=== PATIENT | male | born 1960 | race Caucasian/White ===

== ENCOUNTER 2020-05-01 12:24 | Inpatient (IN) | payer OTHER ==
[~2020-05-01] VITALS: Ht 177.8 cm; Wt 185.0 kg
[2020-05-01 13:09] LABS: Basophils # (auto) 0.1 10 ^3/uL (0-0.2); Basophils % (auto) 1.1 % (0.0-2.0); Eosinophils # (auto) 0.1 10 ^3/uL (0-0.8); Eosinophils % (auto) 1.2 % (0.0-7.0); Hematocrit 43.8 % (41.0-53.0); Hemoglobin 14.4 g/dL (13.5-17.5); Lymphocytes % (auto) 16.8 % (10.0-50.0); Mean Corpuscular Hemoglobin 29.6 pg (28.0-32.0); Mean Corpuscular Hgb Conc. 32.8 g/dL (32.0-36.0); Mean Corpuscular Volume 90.2 fL (80.0-100.0); Monocytes # (auto) 0.7 10 ^3/uL (0-1.3); Monocytes % (auto) 5.9 % (0.0-12.0); Nucleated Red Blood Cells % 0.2 %; Platelet Count (auto) 259 10^3/uL (140-450); Red Blood Cells 4.85 10^6/uL (4.5-5.90)
[2020-05-01 13:26] LABS: Albumin 3.6 g/dL (3.4-5.0); Anion Gap 10 (5-15); Blood Urea Nitrogen 17 mg/dL (7-18); Calcium 8.8 mg/dL (8.5-10.1); Carbon Dioxide 24 mmol/L (21-32); Chloride 104 mmol/L (98-107); Glucose 153 mg/dL (74-106); Partial Thromboplastin Time 26.1 sec (23.0-31.2); Potassium 3.5 mmol/L (3.5-5.1); Sodium 138 mmol/L (136-145)
[2020-05-01 13:32] LABS: Alanine Aminotransferase 36 U/L (16-61); Alkaline Phosphatase 91 U/L (45-117); Aspartate Aminotransferase 19 U/L (15-37); BUN/Creatinine Ratio 14.8; Bilirubin, Total 0.4 mg/dL (0.2-1.0); GFR African American 84 mL/min; GFR Non-African American 69 mL/min; Total Protein 7.4 g/dL (6.4-8.2)
[2020-05-01] MEDS ORDERED: levoFLOXacin 750MG 150 ML IV ONE (16:00)
[2020-05-01] MEDS ORDERED: SODIUM CHLORIDE 0.9% 1,000 ML IV SCH (16:52)
[2020-05-01] MEDS ORDERED: MORPHINE SULF INJ 2 MG/ML SYRINGE 1ML IV PRN ×2 (17:00)
[2020-05-01] MEDS ORDERED: NITROGLYCERIN 0.4 MG SL TAB SL PRN (17:00)
[2020-05-01] MEDS ORDERED: LABETALOL HCL 5 MG/ML ML 20ML VIAL IV PRN (17:00)
[2020-05-01] MEDS ORDERED: PROMETHAZINE HCL 25 MG/ML 1ML IV PRN (17:00)
[2020-05-01] MEDS ORDERED: ACETAMINOPHEN 500 MG TAB PO PRN ×2 (17:00)
[2020-05-01] MEDS ORDERED: traMADol HCL 50 MG TAB PO PRN (17:00)
[2020-05-01] MEDS ORDERED: TEMAZEPAM 15 MG CAP PO PRN (17:00)
[2020-05-01] MEDS: ZINC SULFATE 220mg CAP or TAB PO SCH (17:03)
[2020-05-01] MEDS: ASCORBIC ACID 1,000 MG TAB PO SCH (18:17)
[2020-05-01] MEDS: CHOLECALCIFEROL (VITD3) 2,000 UNIT CAP PO SCH (18:17)
[2020-05-01] MEDS: ENOXAPARIN SOD 40 MG/0.4 ML SYRINGE SC SCH (18:18)
[2020-05-01] MEDS: DexAMETHasone SOD PHOS 10MG/1ML VIAL INJ IV SCH (18:18)
--- NOTE | 2020-05-01 19:06 | NUR ---
Respiratory note: ASSESSED PT AT THIS TIME, NO RESP DISTRESS NOTED, PULSE OX 93% ON 2LNC, HR 76, RR 18
[2020-05-01 20:05] LABS: CRP High Sensitivity 0.309 mg/dL (< 0.3)
--- NOTE | 2020-05-01 20:42 | NUR ---
Telemetry admit from ZEV PETERSON admitted to Telemetry unit. Patient oriented to Radha Mcnair, primary RN, unit, room, bed, and unit policies regarding patient care and visiting hours. Patient now on continuous telemetry monitoring, tele box #3 and telemetry reading on arrival to unit is SR. Patient placed on bedside oxygen, weighed by bedscale and encouraged to call if they need something. All questions and concerns addressed, patient verbalized understanding.
[2020-05-01 21:54] VITALS: BP 132/61
[2020-05-01] MEDS: CLINDAMYCIN 600MG IV 50 ML IV SCH (22:24)
[2020-05-01] MEDS: ATORVASTATIN 20 MG TAB PO SCH (22:24)
[2020-05-01] MEDS: METOPROLOL TARTRATE 25 MG TAB PO SCH (22:24)
[2020-05-01] MEDS: BUDESONIDE (INHALATION) 180 MCG IH IN SCH (22:30)
[2020-05-01] MEDS: ALBUTEROL SULF HFA 90MCG INH 200DOSE IN SCH (22:31)
--- NOTE | 2020-05-01 22:31 | NUR ---
Respiratory note: MDI HELD AT THIS TIME DUE TO COVID RESULTS PENDING.
[2020-05-01 23:58] VITALS: BP 132/61
[2020-05-02 00:01] VITALS: BP 132/61
[2020-05-02] MEDS ORDERED: TAMS0.4C36 PO ×2 (04:05)
[2020-05-02] MEDS ORDERED: LOSA-39 PO (04:05)
[2020-05-02] MEDS ORDERED: AMLO10TA13 PO ×2 (04:05)
[2020-05-02] MEDS ORDERED: ATEN50TA PO (04:05)
[2020-05-02] MEDS ORDERED: METF-370 PO ×2 (04:05)
[2020-05-02] MEDS ORDERED: MAGN400T40 PO ×2 (04:05)
[2020-05-02 05:22] VITALS: BP 141/73
[2020-05-02] MEDS: CLINDAMYCIN 600MG IV 50 ML IV SCH ×3 (05:41→21:33)
[2020-05-02] MEDS: ALBUTEROL SULF HFA 90MCG INH 200DOSE IN SCH ×3 (06:00→22:00)
--- NOTE | 2020-05-02 08:46 | NUR ---
Opening Shift Note Assumed care of patient, awake and alert. No S/S of distress/SOB or pain. Instructed on POC and to call for assist PRN, will continue to monitor for changes Q1hr and PRN.
[2020-05-02 09:00] VITALS: BP 140/80
[2020-05-02] MEDS: ZINC SULFATE 220mg CAP or TAB PO SCH (09:32)
[2020-05-02] MEDS: levoFLOXacin 500MG 100 ML IV SCH (09:32)
[2020-05-02] MEDS: DexAMETHasone SOD PHOS 10MG/1ML VIAL INJ IV SCH (09:32)
[2020-05-02] MEDS: ASPirin 81 mg TAB PO SCH (09:32)
[2020-05-02] MEDS: METOPROLOL TARTRATE 25 MG TAB PO SCH ×2 (09:33→21:34)
[2020-05-02] MEDS: ENOXAPARIN SOD 40 MG/0.4 ML SYRINGE SC SCH ×2 (09:33→21:34)
[2020-05-02] MEDS: CHOLECALCIFEROL (VITD3) 2,000 UNIT CAP PO SCH (09:33)
[2020-05-02] MEDS: ASCORBIC ACID 1,000 MG TAB PO SCH (09:33)
[2020-05-02] MEDS: BUDESONIDE (INHALATION) 180 MCG IH IN SCH ×2 (10:00→22:00)
[2020-05-02 11:25] LABS: Urine Bacteria NONE SEEN /hpf (None Seen); Urine Blood Negative /uL (Negative); Urine Mucus FEW (None Seen); Urine Specific Gravity 1.021 (1.001-1.035); Urine WBC <1 /hpf (0 - 3)
[2020-05-02 11:40] LABS: Alcohol, Urine < 3.0 mg/dL (0-10); Amphetamine Screen, Urine NEGATIVE (NEGATIVE); Barbiturate Scree,Urine NEGATIVE (NEGATIVE); Benzodiazephine Screen, Urine NEGATIVE (NEGATIVE); Cannabinoid Screen, Urine NEGATIVE (NEGATIVE); Cocaine Screen, Urine NEGATIVE (NEGATIVE); Opiate Scree,Urine NEGATIVE (NEGATIVE); Phencyclidine Screen, Urine NEGATIVE (NEGATIVE)
[2020-05-02 13:00] VITALS: BP 146/69
[2020-05-02 17:00] VITALS: BP 151/75
[2020-05-02 19:55] LABS: Basophils # (auto) 0 10 ^3/uL (0-0.2); Basophils % (auto) 0.2 % (0.0-2.0); Eosinophils # (auto) 0 10 ^3/uL (0-0.8); Eosinophils % (auto) 0.3 % (0.0-7.0); Hematocrit 41.2 % (41.0-53.0); Hemoglobin 13.6 g/dL (13.5-17.5); Lymphocytes % (auto) 15.3 % (10.0-50.0); Mean Corpuscular Hemoglobin 29.7 pg (28.0-32.0); Mean Corpuscular Hgb Conc. 32.9 g/dL (32.0-36.0); Mean Corpuscular Volume 90.1 fL (80.0-100.0); Monocytes # (auto) 0.9 10 ^3/uL (0-1.3); Monocytes % (auto) 7.2 % (0.0-12.0); Neutrophils # (auto) 10.1 10 ^3/uL (1.6-8.6); Nucleated Red Blood Cells % 0.1 %; Platelet Count (auto) 258 10^3/uL (140-450); Red Blood Cells 4.58 10^6/uL (4.5-5.90); Red Cell Distribution Width 14.3 % (11.8-14.3); White Blood Cell 13.1 10^3/uL (4.4-10.8)
[2020-05-02 19:59] LABS: Albumin 3.1 g/dL (3.4-5.0); BUN/Creatinine Ratio 17.4; Calcium 8.3 mg/dL (8.5-10.1); Potassium 3.9 mmol/L (3.5-5.1)
[2020-05-02 20:02] LABS: Bilirubin, Total 0.5 mg/dL (0.2-1.0); Total Protein 6.9 g/dL (6.4-8.2)
[2020-05-02] MEDS: ATORVASTATIN 20 MG TAB PO SCH (21:33)
[2020-05-02 22:00] VITALS: BP 147/64
--- NOTE | 2020-05-02 22:16 | NUR ---
Respiratory note: MDI AND DPI HELD DUE TO PENDING R/O COVID RESULTS.
[2020-05-03 05:00] VITALS: BP 135/74
[2020-05-03] MEDS: CLINDAMYCIN 600MG IV 50 ML IV SCH ×2 (05:20→14:23)
[2020-05-03] MEDS: ALBUTEROL SULF HFA 90MCG INH 200DOSE IN SCH (06:00)
--- NOTE | 2020-05-03 06:05 | NUR ---
Respiratory note: MDI/DPI THERAPY HELD PATIENT REMAINS COVID R/O WITH RESULTS PENDING. PATIENT IN NO ACUTE RESPIRATORY DISTRESS AT THIS TIME. SPO2 96% ON 1LPM N/C. ALL OTHER VITALS WNL.
--- NOTE | 2020-05-03 07:53 | NUR ---
OPENING SHIFT NOTE: PATIENT RESTING IN BED, AWAKE A/OX4. ADDRESSED PATIENT CONCERNS, AND UPDATED ON PLAN OF CARE. FALL PRECAUTIONS IN PLACE, CALL LIGHT MOVED WITHIN REACH. WILL CONTINUE TO MONITOR.
[2020-05-03 08:00] VITALS: BP 137/63
[2020-05-03 08:00] LABS: Basophils # (auto) 0.1 10 ^3/uL (0-0.2); Basophils % (auto) 0.6 % (0.0-2.0); Eosinophils # (auto) 0.2 10 ^3/uL (0-0.8); Eosinophils % (auto) 1.7 % (0.0-7.0); Hematocrit 42.5 % (41.0-53.0); Hemoglobin 14.5 g/dL (13.5-17.5); Lymphocytes % (auto) 27.9 % (10.0-50.0); Mean Corpuscular Hemoglobin 30.6 pg (28.0-32.0); Monocytes # (auto) 0.9 10 ^3/uL (0-1.3); Monocytes % (auto) 7.8 % (0.0-12.0); Neutrophils # (auto) 6.8 10 ^3/uL (1.6-8.6); Nucleated Red Blood Cells % 0.2 %; Platelet Count (auto) 244 10^3/uL (140-450); Red Blood Cells 4.73 10^6/uL (4.5-5.90); Red Cell Distribution Width 14.5 % (11.8-14.3); White Blood Cell 10.9 10^3/uL (4.4-10.8)
[2020-05-03 08:06] LABS: BUN/Creatinine Ratio 20.7; Calcium 8.5 mg/dL (8.5-10.1); Potassium 3.9 mmol/L (3.5-5.1)
[2020-05-03] MEDS: DexAMETHasone SOD PHOS 10MG/1ML VIAL INJ IV SCH (09:48)
[2020-05-03] MEDS: levoFLOXacin 500MG 100 ML IV SCH (09:48)
[2020-05-03] MEDS: ASCORBIC ACID 1,000 MG TAB PO SCH (09:48)
[2020-05-03] MEDS: ZINC SULFATE 220mg CAP or TAB PO SCH (09:48)
[2020-05-03] MEDS: ASPirin 81 mg TAB PO SCH (09:48)
[2020-05-03] MEDS: ENOXAPARIN SOD 40 MG/0.4 ML SYRINGE SC SCH (09:49)
[2020-05-03] MEDS: METOPROLOL TARTRATE 25 MG TAB PO SCH (09:49)
[2020-05-03] MEDS: CHOLECALCIFEROL (VITD3) 2,000 UNIT CAP PO SCH (09:49)
[2020-05-03] MEDS: BUDESONIDE (INHALATION) 180 MCG IH IN SCH (10:00)
--- NOTE | 2020-05-03 11:20 | NUR ---
PATIENT COVID NEGATIVE, AND SENT TO ROOM 216A REPORT GIVEN TO LISSETTE AYALA. PATIENT LEFT WITH ALL BELONGINGS.
--- NOTE | 2020-05-03 11:20 | NUR ---
Report Assumed patient care from Covid unit, received report from LUCY Acosta.
--- NOTE | 2020-05-03 11:45 | NUR ---
Patient Arrived Patient arrived to unit. No signs of distress at this time, respirations even and unlabored. Safety precautions in place, will continue to monitor.
[2020-05-03 12:59] VITALS: BP 129/69
[2020-05-03 16:48] VITALS: BP 138/65
--- NOTE | 2020-05-03 16:56 | NUR ---
at Station Dr. Norman at station discussing plan of care.
--- NOTE | 2020-05-03 17:00 | NUR ---
Called Received call from Dr. Powers, per MD patient clear for discharge. Dr. Norman notified and aware.
[2020-05-03] MEDS ORDERED: ASPI-543 PO ×2 (17:29)
[2020-05-03] MEDS ORDERED: ATOR20TA50 PO (17:29)
[2020-05-03] MEDS ORDERED: FURO20TA3 PO ×3 (17:29→17:55)
[2020-05-03] MEDS ORDERED: ATOR10TA52 PO ×2 (17:39)
[2020-05-03] MEDS ORDERED: POTA10TA51 PO ×2 (17:39)
[2020-05-03] MEDS ORDERED: MET25T PO ×2 (17:54)
[2020-05-03] MEDS ORDERED: LEVO500T21 PO ×2 (17:56)
[2020-05-03 19:07] VITALS: BP 138/65
--- NOTE | 2020-05-03 19:10 | NUR ---
OPENING SHIFT NOTE: Assumed care of patient. Patient awake, alert and oriented x 4. No s/s of SOB or distress, patient denies pain. Bed in lowest locked position with two side rails raised and call hill within reach. Instructed on POC and encouraged to call for assistance, all questions and concerns addressed, patient verbalizes understanding. Will continue to monitor.
--- NOTE | 2020-05-03 19:55 | NUR ---
DISCHARGE: Discharge instructions given as ordered. Encourage to follow up with PMD as instructed. All questions and concerns addressed. Patient verbalized understanding. Medication reconciliation form completed and copy given to patient. IV removed with catheter intact, pressure dressing applied. Telemetry unit returned to ICU. Patient taken to vehicle via wheelchair with all personal belongings, accompanied by staff and family member with no incident, No distress noted at time of departure.
== END 2020-05-03 19:55 | disposition home or self-care (01) | DRG 178 ==
LOC: EDBD 12:24 → ER 12:24 → TELE-E-ADS 12:25 → TELE-CENTR 05-03 11:22
PROVIDERS: ADMIT Internal Medicine; ATTEND Hospitalist
DX: J15.6 Pneumonia due to other Gram-negative bacteria (principal); Z68.43 Body mass index [BMI] 50.0-59.9, adult; E11.9 Type 2 diabetes mellitus without complications; E66.01 Morbid (severe) obesity due to excess calories; E78.5 Hyperlipidemia, unspecified; I10 Essential (primary) hypertension; Z83.3 Family history of diabetes mellitus; D72.829 Elevated white blood cell count, unspecified; R79.89 Other specified abnormal findings of blood chemistry; Z20.828 Contact with and (suspected) exposure to other viral communicable diseases
CPT/HCPCS: 36415; 71045; 80048; 80053; 80307; 81001; 82550; 82728; 83880; 84443; 84484; 85025; 85379; 85610; 85652; 85730; 86141; 87040; 87426; 93005; 93306; 93886; 94762; 96361; 96365; 96375; G0378; J1100; J1956; J3490

== ENCOUNTER → 2020-05-24 | Emergency (ER) | payer OTHER ==
[~2020-05-24] VITALS: Ht 177.8 cm; Wt 177.8 kg
[~2020-05-24] MED LIST: AMLO10TA13 PO; ASPI-543 PO; ATEN50TA PO; ATOR10TA52 PO; ATOR20TA50 PO; FURO20TA3 PO; LEVO500T21 PO; LOSA-39 PO; MAGN400T40 PO; MET25T PO; METF-370 PO; POTA10TA51 PO; TAMS0.4C36 PO
[2020-05-24 23:15] LABS: Basophils # (auto) 0 10 ^3/uL (0-0.2); Basophils % (auto) 0.3 % (0.0-2.0); Eosinophils # (auto) 0.2 10 ^3/uL (0-0.8); Eosinophils % (auto) 1.8 % (0.0-7.0); Hematocrit 43.8 % (41.0-53.0); Hemoglobin 14.5 g/dL (13.5-17.5); Lymphocytes # (auto) 1.4 10 ^3/uL (0.4-5.4); Lymphocytes % (auto) 14.1 % (10.0-50.0); Mean Corpuscular Hemoglobin 30.2 pg (28.0-32.0); Mean Corpuscular Hgb Conc. 33.2 g/dL (32.0-36.0); Mean Corpuscular Volume 91.1 fL (80.0-100.0); Monocytes # (auto) 0.7 10 ^3/uL (0-1.3); Monocytes % (auto) 7.3 % (0.0-12.0); Neutrophils # (auto) 7.5 10 ^3/uL (1.6-8.6); Neutrophils % (auto) 76.5 % (37.0-80.0); Nucleated Red Blood Cells % 0.1 %; Platelet Count (auto) 261 10^3/uL (140-450); Red Blood Cells 4.81 10^6/uL (4.5-5.90); Red Cell Distribution Width 14.4 % (11.8-14.3); White Blood Cell 9.8 10^3/uL (4.4-10.8)
[2020-05-24 23:28] LABS: INR 1.02 (0.9-1.15); Partial Thromboplastin Time 27.9 sec (23.0-31.2)
[2020-05-24 23:31] LABS: Alanine Aminotransferase 35 U/L (16-61); Albumin 3.5 g/dL (3.4-5.0); Anion Gap 8 (5-15); Aspartate Aminotransferase 18 U/L (15-37); BUN/Creatinine Ratio 17.1; Blood Urea Nitrogen 18 mg/dL (7-18); Calcium 8.9 mg/dL (8.5-10.1); Carbon Dioxide 26 mmol/L (21-32); Chloride 106 mmol/L (98-107); GFR African American 93 mL/min; GFR Non-African American 77 mL/min; Glucose 150 mg/dL (74-106); Potassium 3.6 mmol/L (3.5-5.1); Sodium 140 mmol/L (136-145)
[2020-05-24 23:36] LABS: Alkaline Phosphatase 82 U/L (45-117); Bilirubin, Total 0.4 mg/dL (0.2-1.0)
[2020-05-25 03:00] VITALS: BP 164/90
== END | disposition home or self-care (01) ==
LOC: EDUNIT# 22:10 → EDBD 22:16 → ER 22:29
DX: I10 Essential (primary) hypertension (principal); E11.9 Type 2 diabetes mellitus without complications; E78.5 Hyperlipidemia, unspecified; Z79.82 Long term (current) use of aspirin; Z79.899 Other long term (current) drug therapy
CPT/HCPCS: 36415; 71045; 80053; 83880; 84484; 85025; 85610; 85730; 93005

== ENCOUNTER 2020-06-07 00:20 | Emergency (ER) | payer OTHER ==
[~2020-06-07] VITALS: Ht 177.8 cm; Wt 178.3 kg
[~2020-06-07 00:20] MED LIST changes: -ATEN50TA PO; -ATOR20TA50 PO; -LOSA-39 PO
[2020-06-07] MEDS ORDERED: cloNIDine HCL 0.1 MG TAB PO ONE (04:45)
[2020-06-07 06:50] LABS: Basophils # (auto) 0 10 ^3/uL (0-0.2); Basophils % (auto) 0.4 % (0.0-2.0); Eosinophils # (auto) 0.2 10 ^3/uL (0-0.8); Eosinophils % (auto) 1.4 % (0.0-7.0); Hematocrit 42.5 % (41.0-53.0); Hemoglobin 14.7 g/dL (13.5-17.5); Lymphocytes # (auto) 2.5 10 ^3/uL (0.4-5.4); Lymphocytes % (auto) 23.3 % (10.0-50.0); Mean Corpuscular Hemoglobin 30.7 pg (28.0-32.0); Mean Corpuscular Hgb Conc. 34.6 g/dL (32.0-36.0); Mean Corpuscular Volume 88.8 fL (80.0-100.0); Monocytes # (auto) 0.7 10 ^3/uL (0-1.3); Monocytes % (auto) 6.8 % (0.0-12.0); Neutrophils # (auto) 7.2 10 ^3/uL (1.6-8.6); Neutrophils % (auto) 68.1 % (37.0-80.0); Platelet Count (auto) 269 10^3/uL (140-450); Red Blood Cells 4.78 10^6/uL (4.5-5.90); Red Cell Distribution Width 14.2 % (11.8-14.3); White Blood Cell 10.6 10^3/uL (4.4-10.8)
[2020-06-07 07:13] LABS: Albumin 3.6 g/dL (3.4-5.0); Anion Gap 4 (5-15); Blood Urea Nitrogen 12 mg/dL (7-18); Carbon Dioxide 29 mmol/L (21-32); Chloride 105 mmol/L (98-107); Glucose 111 mg/dL (74-106); Magnesium 2.6 mg/dL (1.6-2.6); Potassium 3.9 mmol/L (3.5-5.1); Sodium 138 mmol/L (136-145)
[2020-06-07 07:20] LABS: Alanine Aminotransferase 37 U/L (16-61); Alkaline Phosphatase 87 U/L (45-117); Aspartate Aminotransferase 19 U/L (15-37); BUN/Creatinine Ratio 14.5; Bilirubin, Total 0.5 mg/dL (0.2-1.0); CRP High Sensitivity 0.27 mg/dL (< 0.3); Creatine Kinase IFCC 173 U/L (39-308); GFR African American 122 mL/min; GFR Non-African American 101 mL/min; Total Protein 7.3 g/dL (6.4-8.2)
[2020-06-07 09:56] VITALS: BP 135/78
== END 2020-06-07 10:04 | disposition home or self-care (01) ==
LOC: ER 00:22
DX: I10 Essential (primary) hypertension (principal); E11.9 Type 2 diabetes mellitus without complications; E78.5 Hyperlipidemia, unspecified; Z79.82 Long term (current) use of aspirin; Z79.899 Other long term (current) drug therapy
CPT/HCPCS: 36415; 71045; 80053; 82550; 83735; 83880; 84484; 85025; 85652; 86141; 93005

== ENCOUNTER 2021-07-31 06:23 | Inpatient (IN) | payer OTHER ==
[~2021-07-31] VITALS: Ht 177.8 cm; Wt 100.0 kg
[~2021-07-31 06:23] MED LIST changes: +AMLO-496 PO; -AMLO10TA13 PO; -LEVO500T21 PO; +LEVO500T31 PO
[2021-07-31] MEDS ORDERED: SODIUM CHLORIDE 0.9% 1,000 ML IV ONE ×2 (07:15→09:00)
[2021-07-31] MEDS ORDERED: ASPirin 81 mg TAB PO ONE (07:15)
[2021-07-31] MEDS ORDERED: SODIUM CHLORIDE 0.9% 1,000 ML IVB ONE ×2 (07:15→09:00)
[2021-07-31 07:41] LABS: Basophils # (auto) 0 10 ^3/uL (0-0.2); Basophils % (auto) 0.2 % (0.0-2.0); Eosinophils # (auto) 0 10 ^3/uL (0-0.8); Eosinophils % (auto) 0.2 % (0.0-7.0); Hematocrit 44.5 % (41.0-53.0); Hemoglobin 15.3 g/dL (13.5-17.5); Lymphocytes % (auto) 7.1 % (10.0-50.0); Mean Corpuscular Hemoglobin 30.5 pg (28.0-32.0); Mean Corpuscular Hgb Conc. 34.3 g/dL (32.0-36.0); Mean Corpuscular Volume 88.9 fL (80.0-100.0); Monocytes # (auto) 0.6 10 ^3/uL (0-1.3); Monocytes % (auto) 4.5 % (0.0-12.0); Neutrophils # (auto) 12.2 10 ^3/uL (1.6-8.6); Red Cell Distribution Width 14.2 % (11.8-14.3); White Blood Cell 13.8 10^3/uL (4.4-10.8)
[2021-07-31 07:55] LABS: Albumin 3.4 g/dL (3.4-5.0); Calcium 8.7 mg/dL (8.5-10.1); Magnesium 2.2 mg/dL (1.6-2.6); Potassium 3.4 mmol/L (3.5-5.1)
[2021-07-31 07:58] LABS: BUN/Creatinine Ratio 17.6
[2021-07-31 08:03] LABS: Bilirubin, Total 0.3 mg/dL (0.2-1.0); Total Protein 7.9 g/dL (6.4-8.2)
[2021-07-31 09:03] LABS: INR 0.98 (0.9-1.15); Partial Thromboplastin Time 27.8 sec (23.6-33.0)
[2021-07-31] MEDS ORDERED: POTASSIUM EFFERVESENT TAB 25 MEQ PO ONE (10:15)
[2021-07-31] MEDS ORDERED: LORazepam 0.5 MG TAB PO PRN (10:30)
[2021-07-31] MEDS ORDERED: NITROGLYCERIN 0.4 MG SL TAB SL PRN (10:30)
[2021-07-31] MEDS ORDERED: DOCUSATE CALCIUM 240 MG CAP PO PRN (10:30)
[2021-07-31] MEDS ORDERED: MORPHINE SULFATE INJECTION 2 MG/ML SYRG IV PRN (10:30)
[2021-07-31] MEDS ORDERED: hydrALAZINE HCL 20 MG/ML VL IV PRN (10:30)
[2021-07-31] MEDS ORDERED: ONDANSETRON HCL 4 MG/2 ML VIAL IV PRN (10:30)
[2021-07-31] MEDS ORDERED: MORPHINE SULFATE 4 MG/ML SYR/VIAL IV PRN (10:30)
[2021-07-31] MEDS ORDERED: ACETAMINOPHEN 500 MG TAB PO PRN (10:30)
[2021-07-31] MEDS ORDERED: DEXTROSE (50%) 50ML SYRG IV PRN (10:30)
[2021-07-31] MEDS: METOPROLOL TARTRATE 1MG/1ML-5ML VIAL IV SCH ×3 (11:00→11:53)
[2021-07-31] MEDS: ACCU-CHEK COMFORT CURVE STRIP VI SCH ×4 (11:53→23:37)
[2021-07-31] MEDS: InsuLIN REG 1unit/0.01ml Soln (100units/ml) SC SCH ×4 (11:54→23:37)
[2021-07-31 17:00] VITALS: BP 139/65
[2021-07-31 19:14] LABS: Calcium 8.1 mg/dL (8.5-10.1); Potassium 3.2 mmol/L (3.5-5.1)
[2021-07-31 19:22] LABS: BUN/Creatinine Ratio 16.5
[2021-07-31 20:00] VITALS: BP 136/61
[2021-07-31 20:12] LABS: Urine WBC None Seen /hpf (0 - 3)
[2021-07-31 20:19] LABS: Urine Bacteria NONE SEEN /hpf (None Seen); Urine Blood Negative /uL (Negative); Urine Specific Gravity 1.009 (1.001-1.035)
[2021-07-31] MEDS ORDERED: POTASSIUM EFFERVESENT TAB 25 MEQ GT ONE (20:45)
[2021-07-31] MEDS: ENOXAPARIN SOD 150 MG/1 ML SYRINGE SC SCH (21:53)
[2021-07-31] MEDS: METOPROLOL TARTRATE 25 MG TAB PO SCH (21:53)
[2021-07-31 22:00] VITALS: BP 136/61
[2021-07-31] MEDS ORDERED: INSULIN LANTUS (GLARGINE) 1 /0.01ml (100units/ml) SC SCH (22:00)
[2021-07-31] MEDS ORDERED: ASPirin-EC 81 mg tab PO ONE (22:30)
[2021-08-01] MEDS: InsuLIN REG 1unit/0.01ml Soln (100units/ml) SC SCH ×6 (04:00→23:42)
[2021-08-01] MEDS: ACCU-CHEK COMFORT CURVE STRIP VI SCH ×6 (04:13→23:40)
[2021-08-01 05:00] VITALS: BP 150/88
[2021-08-01 06:01] LABS: Basophils # (auto) 0 10 ^3/uL (0-0.2); Basophils % (auto) 0.4 % (0.0-2.0); Eosinophils # (auto) 0.1 10 ^3/uL (0-0.8); Eosinophils % (auto) 1.1 % (0.0-7.0); Hemoglobin 14.1 g/dL (13.5-17.5); Lymphocytes # (auto) 2.5 10 ^3/uL (0.4-5.4); Mean Corpuscular Hemoglobin 29.8 pg (28.0-32.0); Mean Corpuscular Hgb Conc. 33.6 g/dL (32.0-36.0); Mean Corpuscular Volume 88.8 fL (80.0-100.0); Monocytes # (auto) 0.9 10 ^3/uL (0-1.3); Monocytes % (auto) 9.1 % (0.0-12.0); Neutrophils # (auto) 6.7 10 ^3/uL (1.6-8.6); Neutrophils % (auto) 65.4 % (37.0-80.0); Nucleated Red Blood Cells % 0.2 %; Red Blood Cells 4.72 10^6/uL (4.5-5.90); Red Cell Distribution Width 14.2 % (11.8-14.3); White Blood Cell 10.2 10^3/uL (4.4-10.8)
[2021-08-01 06:40] LABS: BUN/Creatinine Ratio 18.8; Bilirubin, Total 0.5 mg/dL (0.2-1.0); Calcium 8.5 mg/dL (8.5-10.1); Total Protein 6.5 g/dL (6.4-8.2)
[2021-08-01] MEDS ORDERED: cefTRIAXone 1GM/50ML D5W 50 ML IV SCH (09:00)
[2021-08-01 09:26] VITALS: BP 161/82
[2021-08-01] MEDS ORDERED: OPTISON 3ml Vial for INJ IV ONE (09:35)
[2021-08-01] MEDS ORDERED: ASPirin-EC 81 mg tab PO SCH (10:00)
[2021-08-01] MEDS: ENOXAPARIN SOD 150 MG/1 ML SYRINGE SC SCH (10:35)
[2021-08-01] MEDS: METOPROLOL TARTRATE 25 MG TAB PO SCH ×2 (10:35→21:14)
[2021-08-01] MEDS: PANTOPRAZOLE 40 MG TAB PO SCH (10:35)
[2021-08-01] MEDS ORDERED: FUROSEMIDE 40 MG/4 ML VIAL IV ONE (11:15)
[2021-08-01] MEDS ORDERED: POTASSIUM CHL 20 Meq TABLET PO ONE (11:15)
[2021-08-01] MEDS ORDERED: METO-158 PO (11:32)
[2021-08-01] MEDS ORDERED: NIFE90TA49 PO (11:33)
[2021-08-01] MEDS ORDERED: LOSA-39 PO (11:33)
[2021-08-01] MEDS ORDERED: MAGN400T40 OR (11:34)
[2021-08-01] MEDS ORDERED: FURO20TA3 PO (11:36)
[2021-08-01] MEDS ORDERED: ASPI1TAB20 PO (11:37)
[2021-08-01] MEDS ORDERED: CLON0.2D6 PO (11:39)
[2021-08-01] MEDS ORDERED: ATOR10TA52 PO (11:39)
[2021-08-01] MEDS ORDERED: CHOL20007 PO (11:41)
[2021-08-01] MEDS ORDERED: TAMS0.4C36 PO (11:41)
[2021-08-01] MEDS ORDERED: METF-370 PO (11:41)
[2021-08-01] MEDS ORDERED: ISOS20TA5 PO (11:43)
[2021-08-01] MEDS ORDERED: HYDR50TA15 PO (11:43)
[2021-08-01] MEDS ORDERED: ALIS150T PO (11:44)
[2021-08-01 12:53] VITALS: BP 146/84
[2021-08-01] MEDS: CEPHALEXIN 250 MG CAP PO SCH ×3 (13:15→23:39)
[2021-08-01 17:25] VITALS: BP 153/72
[2021-08-01] MEDS ORDERED: TAMSULOSIN HYDROCHLORIDE 0.4 MG CAP PO SCH (18:00)
[2021-08-01] MEDS: APIXABAN 5 MG TAB PO SCH (21:13)
[2021-08-01 22:00] VITALS: BP 122/53
[2021-08-02] MEDS: ACCU-CHEK COMFORT CURVE STRIP VI SCH ×3 (03:44→11:30)
[2021-08-02] MEDS: InsuLIN REG 1unit/0.01ml Soln (100units/ml) SC SCH ×3 (03:45→11:30)
[2021-08-02 05:25] VITALS: BP 133/85
[2021-08-02] MEDS: CEPHALEXIN 250 MG CAP PO SCH ×2 (05:31→12:00)
[2021-08-02] MEDS: APIXABAN 5 MG TAB PO SCH (08:40)
[2021-08-02] MEDS: PANTOPRAZOLE 40 MG TAB PO SCH (08:40)
[2021-08-02] MEDS: METOPROLOL TARTRATE 25 MG TAB PO SCH (08:40)
[2021-08-02 09:00] VITALS: BP 124/70
[2021-08-02 09:31] LABS: Calcium 8.8 mg/dL (8.5-10.1); Potassium 4.1 mmol/L (3.5-5.1)
[2021-08-02 09:34] LABS: BUN/Creatinine Ratio 18.6
[2021-08-02] MEDS ORDERED: POTASSIUM CHL 20 Meq TABLET PO SCH (10:00)
[2021-08-02] MEDS ORDERED: FUROSEMIDE 40 MG/4 ML VIAL IV SCH (10:00)
[2021-08-02 11:49] VITALS: BP 124/70
[2021-08-02 12:42] VITALS: BP 125/79
== END 2021-08-02 13:05 | disposition home or self-care (01) | DRG 280 ==
LOC: EDBD 06:23 → ER 06:23 → TELE 10:24 → TELE-CENTR 15:31
PROVIDERS: ADMIT Family Medicine; ATTEND Internal Medicine
DX: I11.0 Hypertensive heart disease with heart failure (principal); I50.41 Acute combined systolic (congestive) and diastolic (congestive) heart failure; I21.A1 Myocardial infarction type 2; D68.69 Other thrombophilia; L97.919 Non-pressure chronic ulcer of unspecified part of right lower leg with unspecified severity; Z68.43 Body mass index [BMI] 50.0-59.9, adult; I48.0 Paroxysmal atrial fibrillation; E87.6 Hypokalemia; E66.01 Morbid (severe) obesity due to excess calories; Z20.822 Contact with and (suspected) exposure to COVID-19; K21.9 Gastro-esophageal reflux disease without esophagitis; E11.65 Type 2 diabetes mellitus with hyperglycemia; E78.5 Hyperlipidemia, unspecified; N40.0 Benign prostatic hyperplasia without lower urinary tract symptoms; Z79.01 Long term (current) use of anticoagulants; Z79.84 Long term (current) use of oral hypoglycemic drugs
CPT/HCPCS: 36415; 71046; 80048; 80053; 81001; 82962; 83036; 83735; 83880; 84443; 84484; 85025; 85379; 85610; 85730; 87426; 93005; 93306; 96360; G0378; J0696; J1815; Q9956

== ENCOUNTER 2023-05-29 15:31 | Emergency (ER) | payer OTHER, MEDICAID ==
[~2023-05-29] VITALS: Ht 177.8 cm; Wt 183.0 kg
[~2023-05-29 15:31] MED LIST changes: +ALIS150T PO; -AMLO-496 PO; +AMLO1TAB23 PO; +ASPI1TAB20 PO; +CHOL20007 PO; +CLON0.2D6 PO; +HYDR-4297 PO; +ISOS20TA5 PO; +LOSA100T58 PO; +MAGN400T40 OR; +METO-158 PO; +NIFE90TA75 PO
[2023-05-29 20:10] VITALS: PULSE 86; RESP 15; O2SAT 94
[2023-05-29] MEDS ORDERED: METOPROLOL TARTRATE 50 MG TAB PO ONE (20:30)
[2023-05-29] MEDS ORDERED: LOSARTAN POTASSIUM 50 MG TAB PO ONE (20:30)
[2023-05-29 21:59] LABS: Basophils # (auto) 0.1 10 ^3/uL (0-0.2); Basophils % (auto) 0.4 % (0.0-2.0); Eosinophils # (auto) 0 10 ^3/uL (0-0.8); Eosinophils % (auto) 0.2 % (0.0-7.0); Hematocrit 32.2 % (41.0-53.0); Hemoglobin 10.7 g/dL (13.5-17.5); Lymphocytes # (auto) 1.1 10 ^3/uL (0.4-5.4); Lymphocytes % (auto) 8.5 % (10.0-50.0); Mean Corpuscular Hemoglobin 29.4 pg (28.0-32.0); Mean Corpuscular Hgb Conc. 33.1 g/dL (32.0-36.0); Mean Corpuscular Volume 88.6 fL (80.0-100.0); Monocytes # (auto) 1.2 10 ^3/uL (0-1.3); Monocytes % (auto) 9.3 % (0.0-12.0); Neutrophils # (auto) 10.6 10 ^3/uL (1.6-8.6); Neutrophils % (auto) 81.6 % (37.0-80.0); Red Blood Cells 3.64 10^6/uL (4.5-5.90); Red Cell Distribution Width 15.5 % (11.8-14.3)
[2023-05-29 22:17] LABS: Alanine Aminotransferase 29 U/L (7-40); Albumin 4.2 g/dL (3.2-4.8); Alkaline Phosphatase 74 U/L (46-116); Anion Gap 7 (5-15); Aspartate Aminotransferase 16 U/L (13-40); Bilirubin, Total 0.4 mg/dL (0.2-1.0); Blood Urea Nitrogen 16 mg/dL (9-23); Calcium 8.6 mg/dL (8.7-10.4); Carbon Dioxide 29 mmol/L (20-30); Chloride 102 mmol/L (98-107); Glucose 205 mg/dL (74-106); Potassium 3.8 mmol/L (3.5-5.1); Sodium 138 mmol/L (136-145)
[2023-05-29 22:18] LABS: Total Protein 6.7 g/dL (5.7-8.2)
[2023-05-29 23:17] VITALS: BP 125/68; PULSE 71; RESP 13; TEMP 98.1; O2SAT 94
== END 2023-05-30 00:02 | disposition short-term general hospital (02) ==
LOC: EDBD 15:31 → ER 15:31
DX: M96.831 Postprocedural hemorrhage of a musculoskeletal structure following other procedure (principal); I11.0 Hypertensive heart disease with heart failure; I50.9 Heart failure, unspecified; E11.9 Type 2 diabetes mellitus without complications; K21.9 Gastro-esophageal reflux disease without esophagitis; E78.5 Hyperlipidemia, unspecified; Z98.890 Other specified postprocedural states; Z79.82 Long term (current) use of aspirin; Z79.84 Long term (current) use of oral hypoglycemic drugs; Z79.899 Other long term (current) drug therapy
CPT/HCPCS: 36415; 80053; 83880; 84484; 85025

== ENCOUNTER 2025-07-21 02:01 | Emergency (ER) | payer OTHER, MEDICAID ==
[~2025-07-21 02:01] MED LIST changes: -HYDR-4297 PO; +HYDR50TA47 PO; +LOSA-535 PO; -LOSA100T58 PO; +POTA-36 PO; -POTA10TA51 PO; -TAMS0.4C36 PO; +TAMS0.4C39 PO
[2025-07-21] MEDS ORDERED: DRON400T PO (08:55)
[2025-07-21] MEDS ORDERED: DULO1CAP6 PO (08:55)
[2025-07-21] MEDS ORDERED: APIX5TAB PO (11:07)
[2025-07-21] MEDS ORDERED: CEFD300C2 PO (12:36)
[2025-07-21] MEDS ORDERED: METO2.5T PO (18:09)
== END 2025-07-21 02:07 | disposition left against medical advice (07) ==
LOC: MERGE 02:01 → EDBD 02:01 → ER 02:01
DX: R00.2 Palpitations (principal); Z79.899 Other long term (current) drug therapy

== ENCOUNTER 2025-07-21 02:10 | Inpatient (IN) | payer MEDICARE, MEDICAID ==
[~2025-07-21] VITALS: Ht 175.3 cm; Wt 146.0 kg
--- NOTE | 2025-07-21 02:18 | ED.PDOC ---
History of Present Illness HPI Comments 64-year-old male who came to ER via EMS for palpitations. Patient has a history of hypertension, diabetes, and AFib. Patient has a good compliance to his medications. Since 11:00 p.m. last night, patient has been experiencing palpitations. Denies significant chest pains, shortness of breath or dizziness. With the arrival of paramedics patient was on AFib at 1 20s, blood sugar of 272 REVIEW OF SYSTEMS: General: No fever, no chills, or fatigue HEENT: No sore throat, no earache, no congestion, no neck pain. Cardiac: No chest pain. (+) palpitations. Lungs: No shortness of breath, no cough. GI: No nausea, no vomiting, no diarrhea, no constipation, no abdominal pain : No dysuria, frequency, or urgency. No hematuria. Musculoskeletal: No joint pain , no joint swelling, no extremity edema. Skin: No rash, no itching. Neuro: No headache, no dizziness, no weakness EXAM: General: Awake, alert and oriented. No acute distress. Skin: Skin in warm, dry and intact. Appropriate color for ethnicity. HEENT: The head is normocephalic and atraumatic. Conjunctivae are clear without exudates or hemorrhage. Sclera is non-icteric. EOM are intact. No signs of nystagmus. Eyelids are normal in appearance without swelling or lesions. Oral mucosa is pink and moist Neck: The neck is supple with normal range of motion. No JVD. Cardiac: Heart rate and rhythm are normal. No murmurs, gallops, or rubs are auscultated. Respiratory: No signs of respiratory distress. Lung sounds are clear in all lobes bilaterally without rales, rhonchi, or wheezes. Abdominal: Abdomen is soft, non-tender without distention. Bowel sounds are present and normoactive in all four quadrants. Extremities: Upper and lower extremities are atraumatic in appearance without deformity or edema. Neurological: The patient is awake, alert and oriented to person, place, and time with normal speech. Speech is clear. There is no facial asymmetry. Psychiatric: Appropriate mood and affect. Good judgement and insight Chief Complaint: Palpitations Time Seen by MD: 02:18 Primary Care Provider: ARNIE Jacobo Notes: Nurses Notes Allergies: Coded Allergies: NO KNOWN ALLERGIES (Verified , 05/29/23) Home Meds Active Scripts Levofloxacin (Levaquin) 500 Mg Tab, 500 MG PO DAILY, #7 MG Prov:MAK HOGAN MD 05/03/20 Furosemide (Furosemide) 20 Mg Tab, 20 MG PO DAILY for IF NEEDED FOR SWELLING for 30 Days, MG Prov:MAK HOGAN MD 05/03/20 Metoprolol Tartrate (Lopressor) 25 Mg Tb, 25 MG PO BID, #60 TAB Prov:MAK HOGAN MD 05/03/20 Reported Medications Aliskiren Fumarate (Tekturna) 150 Mg Tab, 1 TAB PO DAILY, #30 TAB 5 Refills 08/01/21 Hydralazine Hcl (Hydralazine Hcl) 50 Mg Tab, 50 MG PO TID for 30 Days, MG 08/01/21 Isosorbide Dinitrate (Isosorbide Dinitrate) 20 Mg Tab, 20 MG PO BID, MG 08/01/21 Cholecalciferol (VITAMIN D3) 2,000 Unit Tab, 1 TAB PO DAILY, #30 TAB 5 Refills 08/01/21 Tamsulosin Hcl (Tamsulosin Hcl) 0.4 Mg Cap, 0.4 MG PO QPM for 30 Days, MG 08/01/21 Metformin Hydrochloride (Metformin Hcl) 500 Mg Tab, 500 MG PO BID for 30 Days, MG 08/01/21 Atorvastatin Calcium (ATORVASTATIN CALCIUM) 10 Mg Tab, 1 TAB PO DAILY, #30 TAB 5 Refills 08/01/21 Clonidine Hydrochloride (Clonidine Hcl) 0.2 Mg/24 Hr Dis, 0.2 MG PO Q6HR for 30 Days, MG 08/01/21 Aspirin (Aspir-81) 81 Mg Tab, 1 TAB PO DAILY, #30 TAB 5 Refills 08/01/21 Furosemide (Furosemide) 20 Mg Tab, 20 MG PO BIDD for 30 Days, MG 08/01/21 Magnesium Oxide (MAGNESIUM OXIDE) 400 Mg Tab, 400 MG OR DAILY, TAB 08/01/21 Losartan Potassium (Losartan Potassium) 100 Mg Tab, 100 MG PO DAILY for 30 Days, MG 08/01/21 Nifedipine (Nifedipine Er) 90 Mg Tab, 1 TAB PO DAILY, #30 TAB 5 Refills 08/01/21 Metoprolol Tartrate (Metoprolol Tartrate) 50 Mg Tab, 50 MG PO BID for 30 Days, MG 08/01/21 Potassium Chloride (POTASSIUM CHLORIDE CR) 10 Meq Tb, 1 TAB PO DAILY, #30 TAB 5 Refills 05/03/20 Atorvastatin Calcium (ATORVASTATIN CALCIUM) 10 Mg Tab, 1 TAB PO DAILY, #30 TAB 5 Refills 05/03/20 Aspirin (Aspir-Low) 81 Mg Tab, 81 MG PO DAILY for 30 Days, MG 05/03/20 Tamsulosin Hcl (Tamsulosin Hcl) 0.4 Mg Cap, 0.4 MG PO QPM for 30 Days, MG 05/02/20 Magnesium Oxide (MAGNESIUM OXIDE) 400 Mg Tab, 1 TAB PO DAILY, #30 TAB 5 Refills 05/02/20 Amlodipine Besylate (Amlodipine Besylate) 10 Mg Tab, 1 TAB PO DAILY, #30 TAB 5 Refills 05/02/20 Metformin Hydrochloride (Metformin Hcl) 500 Mg Tab, 500 MG PO BID for 30 Days, MG 05/02/20 Information Source: Patient Past Medical History PAST MEDICAL HISTORY: AFIB, DM, GERD, High Lipids, HTN Surgical History: Hernia Repair Family History Family History: Reviewed,noncontributory to illness Social History Smoker: Non-Smoker Alcohol: Denies ETOH Use Drugs: Denies Drug Use Lives In: Home Was a procedure done? Was a procedure done?: No EKG EKG : Pulse Rate (adult): 121 Cardiac Rhythm: Afib Differential Dx Considerations may include: Palpitations, AFib, SVT, sinus tachycardia, arrhythmia, anxiety, chest pains X-Ray, Labs, Meds, VS Vital Signs Date Time Temp Pulse Resp B/P (MAP) Pulse Ox O2 Delivery O2 Flow Rate FiO2 07/21/25 03:00 90 07/21/25 02:18 121 07/21/25 02:12 98.2 130 18 109/59 96 98.2 Lab Test 07/21/25 02:27 Range/Units White Blood Count 14.0 H 4.4-10.8 10^3/uL Red Blood Count 4.53 4.5-5.90 10^6/uL Hemoglobin 12.1 L 13.5-17.5 g/dL Hematocrit 36.5 L 41.0-53.0 % Mean Corpuscular Volume 80.6 80.0-100.0 fL Mean Corpuscular Hemoglobin 26.7 L 28.0-32.0 pg Mean Corpuscular Hemoglobin Concent 33.1 32.0-36.0 g/dL Red Cell Distribution Width 17.1 H 11.8-14.3 % Platelet Count 337 140-450 10^3/uL Mean Platelet Volume 6.4 L 6.9-10.8 fL Neutrophils (%) (Auto) 89.6 H 37.0-80.0 % Lymphocytes (%) (Auto) 5.1 L 10.0-50.0 % Monocytes (%) (Auto) 4.1 0.0-12.0 % Eosinophils (%) (Auto) 0.8 0.0-7.0 % Basophils (%) (Auto) 0.4 0.0-2.0 % Neutrophils # (Auto) 12.5 H 1.6-8.6 10 ^3/uL Lymphocytes # (Auto) 0.7 0.4-5.4 10 ^3/uL Monocytes # (Auto) 0.6 0-1.3 10 ^3/uL Eosinophils # (Auto) 0.1 0-0.8 10 ^3/uL Basophils # (Auto) 0.1 0-0.2 10 ^3/uL Nucleated Red Blood Cells 0.0 % Prothrombin Time 10.9 9.3-11.8 sec Prothrombin Time INR 1.03 0.9-1.15 Sodium Level 141 136-145 mmol/L Potassium Level 3.0 L 3.5-5.1 mmol/L Chloride Level 100 98-107 mmol/L Carbon Dioxide Level 29 20-31 mmol/L Anion Gap 12 5-15 Blood Urea Nitrogen 22 9-23 mg/dL Creatinine 1.69 H 0.700-1.30 mg/dL Glomerular Filtration Rate Calc 45 >90 mL/min BUN/Creatinine Ratio 13.0 10.0-20.0 Serum Glucose 201 H 74-106 mg/dL Calcium Level 9.4 8.7-10.4 mg/dL Troponin I High Sensitivity 8 </=54 ng/L B-Type Natriuretic Peptide 24.13 0-100 pg/mL Current Medications Medications (Trade) Dose Ordered Sig/Rebecca Route Start Time Stop Time Status Last Admin Sodium Chloride 500 ml @ 500 mls/hr Q1H ONCE IV 07/21/25 02:30 07/21/25 03:29 DC 07/21/25 02:52 Diltiazem HCl (Cardizem Injection) 15 mg ONCE ONCE IV 07/21/25 02:30 07/21/25 02:31 DC 07/21/25 02:52 Time of 1ST Reevaluation: 02:14 Reevaluation 1ST: Unchanged Patient Education/Counseling: Need For Follow Up Family Education/Counseling: No Family Present SEPSIS Sepsis Screen Physician Orders Titrate Oxygen (07/21/25 02:17) Oxygen (07/21/25 ) Continous Pulse Oximetry (07/21/25 02:17) Saline Lock (07/21/25 02:17) Steel Estimator (07/21/25 ) Electrocardigram (07/21/25 02:34) Electrocardigram (07/21/25 03:34) Electrocardigram (07/21/25 05:34) Potassium Chl Octaviano Kcl (07/21/25 04:15) Chest Xray 1 View (07/21/25 04:06) Urinalysis (07/21/25 04:06) Ceftriaxone Ivpb Rocephin (07/21/25 04:15) Vital Signs Date Time Temp Pulse Resp B/P (MAP) Pulse Ox O2 Delivery O2 Flow Rate FiO2 07/21/25 03:00 90 07/21/25 02:18 121 07/21/25 02:12 98.2 130 18 109/59 96 98.2 Laboratory Tests Test 07/21/25 02:27 White Blood Count 14.0 10^3/uL (4.4-10.8) H Medications Medications Dose Ordered Sig/Rebecca Route Start Time Stop Time Status Last Admin Dose Admin Diltiazem HCl 15 mg ONCE ONCE IV 07/21/25 02:30 07/21/25 02:31 DC 07/21/25 02:52 Sodium Chloride 500 ml @ 500 mls/hr Q1H ONCE IV 07/21/25 02:30 07/21/25 03:29 DC 07/21/25 02:52 Departure 1 Departure Time of Disposition: 04:08 Impression: Primary Impression: Atrial fibrillation with RVR Additional Impressions: Leukocytosis Hypokalemia MARITZA (acute kidney injury) Disposition: ADMITTED INPATIENT Condition: Stable Comments MDM: Patient is stabilized in the ED Patient admitted to hospitalist service for further treatment, evaluation and monitoring. Extensive evaluation was performed in attempt to identify or rule out: (See differential diagnosis section) The following tests were ordered, and results were reviewed by me and discussed with patient: (See diagnostic results section) The following test were independently interpreted by me: EKG I reviewed and agreed with the following test results read by other providers: N/A I reviewed the following notes from the pt's past medical encounters: N/A Additional information was gathered from interviewing the following independent historians: EMS personnel Addressed an acute or chronic illness that poses a threat to life or bodily function: AFib with RVR Decision regarding hospitalization or escalation of hospital level of care: Risk and benefits of admission for further treatment of patient's condition was considered. Due to patient's current clinical condition, high risk of decline and poor outcome if discharged and need for further inpatient management and monitoring, patient will be admitted to the hospital. Drug therapy requiring intensive monitoring for toxicity: IV Cardizem Critical Care Note Critical Care Time?: Yes (35 min-critical care time only) Critical care comment: Due to a high probability of clinically significant, life threatening deterioration, the patient required my highest level of preparedness to intervene emergently and I personally spent this critical care time directly and personally managing the patient. This critical care time included obtaining a history; examining the patient; pulse oximetry; ordering and review of studies; arranging urgent treatment with development of a management plan; evaluation of patient's response to treatment; frequent reassessment; and, discussions with other providers. This critical care time was performed to assess and manage the high probability of imminent, life-threatening deterioration that could result in multi-organ failure. It was exclusive of separately billable procedures and treating other patients and teaching time. Please see my other sections and the rest of the note for further information on patient assessment and treatment. Stability Stability form required: No Heart Score Heart Score: Heart Score Response (Comments) Value History N/A 0 EKG N/A 0 Age N/A 0 Risk Factors N/A 0 Troponin N/A 0 Total 0 I personally scribed for SANTHOSH BARRIOS MD ([email or web address]) on 07/21/25 at 02:18. Electronically submitted by Christopher Gudino ([facility]). SANTHOSH BARRIOS MD Jul 21, 2025 02:18
[2025-07-21 02:51] LABS: Hematocrit 36.5 % (41.0-53.0); Hemoglobin 12.1 g/dL (13.5-17.5); Mean Corpuscular Hemoglobin 26.7 pg (28.0-32.0)
[2025-07-21 02:52] LABS: Mean Corpuscular Volume 80.6 fL (80.0-100.0); Nucleated Red Blood Cells % 0.0 %
[2025-07-21] MEDS: SODIUM CHLORIDE 0.9% 500 ML IV ONE (02:52)
[2025-07-21] MEDS: dilTIAZem 25 MG/5 ML VIAL IV ONE (02:52)
[2025-07-21 02:55] LABS: INR 1.03 (0.9-1.15); Prothrombin Time 10.9 sec (9.3-11.8)
[2025-07-21 02:56] LABS: Chloride 100 mmol/L (98-107); Sodium 141 mmol/L (136-145)
[2025-07-21 02:57] LABS: Anion Gap 12 (5-15); Calcium 9.4 mg/dL (8.7-10.4); Carbon Dioxide 29 mmol/L (20-31)
[2025-07-21 03:02] LABS: BUN/Creatinine Ratio 13.0 (10.0-20.0); Blood Urea Nitrogen 22 mg/dL (9-23)
[2025-07-21 03:22] LABS: Glucose 201 mg/dL (74-106); Potassium 3.0 mmol/L (3.5-5.1)
[2025-07-21 04:01] VITALS: PULSE 89; RESP 11; O2SAT 96
[2025-07-21 04:59] LABS: Urine Protein, UAD Negative (Negative)
--- NOTE | 2025-07-21 05:10 | DVH ---
CHEST RADIOGRAPH Indication: Palpitations, leukocytosis Technique: Single frontal view of the chest was obtained Comparison: CHEST TWO VIEWS ROUTINE on DOS: 07/31/21 FINDINGS: Lines and Tubes: None Lungs: No focal consolidation. Pleura: No effusion. No pneumothorax. Cardiomediastinal contours: Unremarkable Bones: No acute osseous abnormality. IMPRESSION: 1. No acute cardiopulmonary disease.
[2025-07-21] MEDS: POTASSIUM CHL 20MEQ/100ML 100 ML IV ONE (05:13)
--- NOTE | 2025-07-21 06:29 | ECG ---
[facility] Test Date: 2025-07-21 Test Time: 02:03:32 Pat Name: ZEV PETERSON Department: [facility] ED Patient ID: [facility]-[id number] Room: 0289T Gender: M Stylist Apprentice: JIHAN : 1960 Requested By: SANTHOSH BARRIOS Order Number: [id number] Reading MD: Kalia Kemp Measurements Intervals [place] Rate: 121 P: 0 [place]: 0 QRS: -72 QRSD: 133 T: 100 QT: 336 QTc: 477 Interpretive Statements Atrial fibrillation Ventricular premature complex Nonspecific IVCD with LAD LVH with secondary repolarization abnormality Extensive anterior infarct, acute (LAD) Electronically Signed On 07-24-2025 15:41:37 PST by Kalia Kemp Please click the below link to view image of tracing.
--- NOTE | 2025-07-21 06:29 | ECG ---
[facility] Test Date: 2025-07-21 Test Time: 03:00:48 Pat Name: ZEV PETERSON Department: [facility] ED Patient ID: [facility]-[id number] Room: 0289T Gender: M Tongue Presser: JIHAN : 1960 Requested By: SANTHOSH BARRIOS Order Number: [id number] Reading MD: Kalia Kemp Measurements Intervals [place] Rate: 90 P: 68 [place]: 252 QRS: -73 QRSD: 134 T: 74 QT: 380 QTc: 465 Interpretive Statements Sinus rhythm Atrial premature complex Prolonged [place] interval Consider left atrial enlargement Nonspecific IVCD with LAD Left ventricular hypertrophy Inferior infarct, acute (RCA) Lateral leads are also involved Probable RV involvement, suggest recording right precordial leads Electronically Signed On 07-24-2025 15:41:38 PST by Kalia Kemp Please click the below link to view image of tracing.
--- NOTE | 2025-07-21 06:29 | ECG ---
[facility] Test Date: 2025-07-21 Test Time: 04:59:00 Pat Name: ZEV PETERSON Department: [facility] ED Room: 0289T Gender: M Lift Team Technician: JIHAN : 1960 Requested By: SANTHOSH BARRIOS Order Number: [id number] Reading MD: Kalia Kemp Measurements Intervals [place] Rate: 72 P: 75 [place]: 223 QRS: -70 QRSD: 133 T: 72 QT: 431 QTc: 472 Interpretive Statements Sinus rhythm Prolonged [place] interval Left bundle branch block Electronically Signed On 07-24-2025 15:41:43 PST by Kalia Kemp Please click the below link to view image of tracing.
[2025-07-21] MEDS ORDERED: DULO1CAP6 PO (08:55)
[2025-07-21] MEDS ORDERED: DRON400T PO (08:55)
[2025-07-21] MEDS ORDERED: ACETAMINOPHEN 325 MG TAB PO PRN (09:00)
[2025-07-21] MEDS ORDERED: NITROGLYCERIN 0.4 MG SL TAB SL PRN (09:00)
[2025-07-21] MEDS ORDERED: DOCUSATE SOD 100 MG CAP PO PRN (09:00)
[2025-07-21] MEDS ORDERED: HYDROcodone-ACET 5/325MG TAB PO PRN (09:00)
[2025-07-21] MEDS ORDERED: MORPHINE SULFATE INJ 2 MG/ml SYRG IV PRN (09:00)
[2025-07-21] MEDS ORDERED: ONDANSETRON HCL 4 MG/2 ML VIAL IV PRN (09:00)
[2025-07-21] MEDS ORDERED: DEXTROSE (50%) 50ML SYRG IV PRN (09:15)
--- NOTE | 2025-07-21 09:26 | DVHHP2 ---
History of Present Illness Reason for Visit: Palpitations History of Present Illness Axel Blandon is a 64-year-old male with past medial history of hypertension, hyperlipidemia, diabetes, BPH, skin cancer, and atrial fibrillation, who came to the hospital for palpitations. Patient states he can feel when his atrial fibrillation is acting up and he monitors it on his watch. He states last night about 2300 he felt the palpitations and noticed that his heart rate was elevated he took his nightly dose of Multaq and metoprolol. He waited about 2 hours, was only having minimal improvement so he took another metoprolol. He waited another 45 minutes then called EMS cause his heart rate was still up in the 130's. Patient states he was taking 100mg of metoprolol BID, but was decreased to 50 mg BID about 3 months ago due to him losing over 100 pounds and his blood pressure decreasing. He states he felt like this happened about 2 weeks ago. He took an extra dose of his metoprolol at that time and his symptoms improved. Patient does have bilateral lower extremities cellulites that he is currently being treated for. He has home health that comes 5 nights a weeks, he is on antibiotics, and lives with his sister who is his caregiver. Patient is also currently undergoing skin cancer treatment. He has been undergoing radiation, chemo therapy, and surgeries. Past Surgical History: Hernia Repair, Other (multiple skin cancer surgeries) Smoke: No ALCOHOL: none Drugs: None Lives: with Family Domestic Violence: Neg Review of Systems Constitutional: No: Fever, Chills, Sweats, Weakness, Malaise, Other Eyes: No: Pain, Vision change, Conjunctivae inflammation, Eyelid inflammation, Other, Redness ENT: No: Ear pain, Ear discharge, Nose pain, Nose discharge, Nose congestion, Mouth pain, Mouth swelling, Throat pain, Throat swelling, Other Respiratory: No: Cough, Dry, Shortness of breath, SOB with excertion, Wheezing, Hemoptysis, Pleuritic Pain, Sputum, Wheezing, Other Cardiovascular: No: Chest Pain, Palpitations, Orthopnea, Paroxysmal Noc. Dyspnea, Edema, Lt Headedness, Other Gastrointestinal: No: Nausea, Vomiting, Abdominal Pain, Diarrhea, Constipation, Melena, Hematochezia, Other Genitourinary: No Dysuria, No Frequency, No Incontinence, No Hematuria, No Retention, No Other Musculoskeletal: No: other, neck pain, shoulder pain, arm pain, back pain, hand pain, leg pain, foot pain Skin: No: Rash, Lesions, Jaundice, Bruising, Other Neurological: No: Weakness, Numbness, Incoordination, Change in speech, Confusion, Seizures, Other Allergies: Coded Allergies: NO KNOWN ALLERGIES (Verified , 05/29/23) Medications Current Medications Medications Dose Ordered Sig/Rebecca Route Start Time Stop Time Status Last Admin Dose Admin Acetaminophen/ Hydrocodone Bitart 1 tab Q4HP PRN PO 07/21/25 09:00 UNV Ondansetron HCl 4 mg Q4HP PRN IV 07/21/25 09:00 UNV Docusate Sodium 100 mg BIDPRN PRN PO 07/21/25 09:00 UNV Acetaminophen 650 mg Q6HP PRN PO 07/21/25 09:00 UNV Nitroglycerin 0.4 mg Q5MINP PRN SL 07/21/25 09:00 UNV Morphine Sulfate 2 mg Q30M PRN IV 07/21/25 09:00 UNV Aspirin 81 mg DAILY PO 07/21/25 10:00 UNV Exam Vital Signs Vital Signs Date Time Temp Pulse Resp B/P (MAP) Pulse Ox O2 Delivery O2 Flow Rate FiO2 07/21/25 08:00 68 07/21/25 08:00 97.5 15 126/63 (84) 99 97.5 07/21/25 07:45 Room Air* 0 21 General Appearance: Alert, Oriented X3, Cooperative, mild distress HEENT: Atraumatic, PERRLA Respiratory: Clear to auscultation, Normal air movement Cardiovascular: Regular rate, Normal S1, Normal S2, No murmurs Abdominal: Normal bowel sounds, Soft, No tenderness Extremities: No clubbing, No cyanosis, Normal pulses, Other (bilateral lower extremity edema and redness) Skin: No rashes, No significant lesion (bilateral lower extremity redness, weeping, and swelling) Neuro: Normal gait, Normal speech, Strength at 5/5 X4 ext, Other (uses a cane or walker at baseline) Psych/Mental Status: Mental status NL, Mood NL Labs/Xrays Labs Test 07/21/25 04:34 07/21/25 02:27 Range/Units Urine Color Colorless Yellow Urine Clarity Clear Clear Urine pH 6.0 5.0-9.0 Urine Specific [place] 1.009 1.001-1.035 Urine Protein Negative Negative Urine Ketones Negative Negative Urine Blood Negative Negative /uL Urine Nitrite Negative Negative Urine Bilirubin Negative Negative Urine Urobilinogen Normal Negative mg/dL Urine Leukocyte Esterase Negative Negative /uL Urine RBC <1 0 - 3 /hpf Urine Microscopic WBC < 1 0-3 /HPF Urine Squamous Epithelial Cells None seen <5 /hpf Urine Bacteria None seen None Seen /hpf Urine Glucose Normal Normal mg/dL White Blood Count 14.0 H 4.4-10.8 10^3/uL Red Blood Count 4.53 4.5-5.90 10^6/uL Hemoglobin 12.1 L 13.5-17.5 g/dL Hematocrit 36.5 L 41.0-53.0 % Mean Corpuscular Volume 80.6 80.0-100.0 fL Mean Corpuscular Hemoglobin 26.7 L 28.0-32.0 pg Mean Corpuscular Hemoglobin Concent 33.1 32.0-36.0 g/dL Red Cell Distribution Width 17.1 H 11.8-14.3 % Platelet Count 337 140-450 10^3/uL Mean Platelet Volume 6.4 L 6.9-10.8 fL Neutrophils (%) (Auto) 89.6 H 37.0-80.0 % Lymphocytes (%) (Auto) 5.1 L 10.0-50.0 % Monocytes (%) (Auto) 4.1 0.0-12.0 % Eosinophils (%) (Auto) 0.8 0.0-7.0 % Basophils (%) (Auto) 0.4 0.0-2.0 % Neutrophils # (Auto) 12.5 H 1.6-8.6 10 ^3/uL Lymphocytes # (Auto) 0.7 0.4-5.4 10 ^3/uL Monocytes # (Auto) 0.6 0-1.3 10 ^3/uL Eosinophils # (Auto) 0.1 0-0.8 10 ^3/uL Basophils # (Auto) 0.1 0-0.2 10 ^3/uL Nucleated Red Blood Cells 0.0 % Prothrombin Time 10.9 9.3-11.8 sec Prothrombin Time INR 1.03 0.9-1.15 Sodium Level 141 136-145 mmol/L Potassium Level 3.0 L 3.5-5.1 mmol/L Chloride Level 100 98-107 mmol/L Carbon Dioxide Level 29 20-31 mmol/L Anion Gap 12 5-15 Blood Urea Nitrogen 22 9-23 mg/dL Creatinine 1.69 H 0.700-1.30 mg/dL Glomerular Filtration Rate Calc 45 >90 mL/min BUN/Creatinine Ratio 13.0 10.0-20.0 Serum Glucose 201 H 74-106 mg/dL Calcium Level 9.4 8.7-10.4 mg/dL Troponin I High Sensitivity 8 </=54 ng/L B-Type Natriuretic Peptide 24.13 0-100 pg/mL CHEST RADIOGRAPH FINDINGS: Lines and Tubes: None Lungs: No focal consolidation. Pleura: No effusion. No pneumothorax. Cardiomediastinal contours: Unremarkable Bones: No acute osseous abnormality. IMPRESSION: 1. No acute cardiopulmonary disease. SEPSIS Sepsis Screen Date sepsis recognized/suspect: Jul 21, 2025 Time Sepsis recognized/suspect: 08 Recent Procedure: No On Antibiotic Therapy: No Respiratory Rate >20: No Heart Rate >90: No Temp<36 C (96.8 F) or >38.3 C: No SBP <90 or MAP <65 mmHG: No New Acute Mental Status Change: No Is the patient on CPAP, BIPAP,: No Physician Orders Titrate Oxygen (07/21/25 02:17) Oxygen (07/21/25 ) Continous Pulse Oximetry (07/21/25 02:17) Saline Lock (07/21/25 02:17) Signal Constructor (07/21/25 ) Chest Xray 1 View (07/21/25 04:06) Admit (07/21/25 08:46) Code Status (07/21/25 08:46) Hydrocodone-Acet 5/325mg Tab ([place] 5/32 (07/21/25 09:00) Ondansetron Hcl (Zofran) (07/21/25 09:00) Docusate Sodium Capsule (Colace Capsule) (07/21/25 09:00) Complete Blood Count (07/22/25 04:00) Comprehensive Metabolic Panel (07/22/25 04:00) Cardiac Diet-2gna,Lofat,Lochol (07/21/25 Breakfast) Condition: Serious (07/21/25 08:46) Acetaminophen Tablet (Tylenol Tablet) (07/21/25 09:00) Nitroglycerin Sublingual (Ntrostat Subli (07/21/25 09:00) Morphine Sulfate Injection (07/21/25 09:00) Stat Ekg For Chest Pain (07/21/25 08:46) Notify Of Changes From Base (07/21/25 08:46) Validation Technician For 24 Hours (07/21/25 08:46) Emergency Dysrhythmia Protocol (07/21/25 08:46) Rhythm Strips Once Every Shift (07/21/25 08:46) Oxygen By Nasal Cannula (07/21/25 08:46) * Cardiology Consult (07/21/25 08:46) Potassium (07/21/25 11:00) Magnesium (07/21/25 11:00) Aspirin Enteric Coated Tablet (Ecotrin E (07/21/25 10:00) Metoprolol Tartrate Tablet (Lopressor Ta (07/21/25 10:00) Tamsulosin Hydrochloride (Flomax) (07/21/25 18:00) (Nf) Atorvastatin Calcium (07/21/25 10:00) (Nf) Cholecalciferol (Vitamin D3) (07/21/25 10:00) (Nf) Magnesium Oxide (07/21/25 10:00) (Nf) Dronedarone Hydrochloride (Multaq) (07/21/25 10:00) Vital Signs Date Time Temp Pulse Resp B/P (MAP) Pulse Ox O2 Delivery O2 Flow Rate FiO2 07/21/25 08:00 68 07/21/25 08:00 97.5 70 15 126/63 (84) 99 97.5 07/21/25 07:45 Room Air* 0 21 07/21/25 06:00 66 10 117/61 (79) 96 07/21/25 04:59 72 07/21/25 04:01 89 11 96 Room Air* 0 21 07/21/25 04:00 89 14 120/62 (81) 95 07/21/25 03:00 90 07/21/25 02:25 98.4 106 13 125/60 (81) 96 98.4 07/21/25 02:18 121 07/21/25 02:12 98.2 130 18 109/59 96 98.2 07/21/25 02:10 121 Laboratory Tests Test 07/21/25 02:27 White Blood Count 14.0 10^3/uL (4.4-10.8) H Medications Medications Dose Ordered Sig/Rebecca Route Start Time Stop Time Status Last Admin Dose Admin Ceftriaxone Sodium 50 ml @ 100 mls/hr ONCE ONCE IV 07/21/25 04:15 07/21/25 04:44 DC 07/21/25 04:30 100 MLS/HR Diltiazem HCl 15 mg ONCE ONCE IV 07/21/25 02:30 07/21/25 02:31 DC 07/21/25 02:52 15 MG Potassium Chloride 100 ml @ 50 mls/hr ONCE ONCE IV 07/21/25 04:15 07/21/25 06:14 DC 07/21/25 05:13 50 MLS/HR Sodium Chloride 500 ml @ 500 mls/hr Q1H ONCE IV 07/21/25 02:30 07/21/25 03:29 DC 07/21/25 02:52 500 MLS/HR Assessment/Plan Assessment/Plan Assessment: Atrial fibrillation with RVR, Acute kidney injury, Hypokalemia, Leukocytosis, Hypertension, Hyperlipidemia, BPH, Diabetes, Plan: Admit to Tele, Cardiology consult, ECHO, IV antibiotics, IV hydration, Manage/Monitor electrolytes closely, Accu checks Q AC&HS with sliding scale, Home medications reconciled, Plan discussed with: Patient My Orders Orders - KARLOINA CHARLES [employer] Procedure Category Date Status Time Admit ADMIT 07/21/25 Transmitted 08:46 Code Status CODE 07/21/25 Transmitted 08:46 Hydrocodone-Acet PHA 07/21/25 Logged 5/325mg Tab ([place] 09:00 Ondansetron Hcl PHA 07/21/25 Transmitted (Zofran) 09:00 Docusate Sodium PHA 07/21/25 Transmitted Capsule (Colace 09:00 Complete Blood Count LAB 07/22/25 Verified 04:00 Comprehensive LAB 07/22/25 Verified Metabolic Panel 04:00 Cardiac DIET 07/21/25 Transmitted Diet-2gna,Lofat,Lochol Breakfast Condition: Serious PATEL 07/21/25 Transmitted 08:46 Acetaminophen Tablet PHA 07/21/25 Transmitted (Tylenol Tablet) 09:00 Nitroglycerin PHA 07/21/25 Transmitted Sublingual (Ntrostat 09:00 Morphine Sulfate PHA 07/21/25 Transmitted Injection 09:00 Stat Ekg For Chest [facility] 07/21/25 Transmitted Pain 08:46 Notify Of Changes [facility] 07/21/25 Transmitted From Base 08:46 Validation Technician For [facility] 07/21/25 Transmitted 24 Hours 08:46 Emergency Dysrhythmia [facility] 07/21/25 Transmitted Protocol 08:46 Rhythm Strips Once [facility] 07/21/25 Transmitted Every Shift 08:46 Oxygen By Nasal RT 07/21/25 Transmitted Cannula 08:46 * Cardiology Consult CONS 07/21/25 Transmitted 08:46 Potassium LAB 07/21/25 Logged 11:00 Magnesium LAB 07/21/25 Logged 11:00 Aspirin Enteric PHA 07/21/25 Transmitted Coated Tablet 10:00 Metoprolol Tartrate PHA 07/21/25 Transmitted Tablet (Lopressor Ta 10:00 Tamsulosin PHA 07/21/25 Transmitted Hydrochloride (Flomax) 18:00 (Nf) Atorvastatin PHA 07/21/25 Transmitted Calcium 10:00 (Nf) Cholecalciferol PHA 07/21/25 Transmitted (Vitamin D3) 10:00 (Nf) Magnesium Oxide PHA 07/21/25 Transmitted 10:00 (Nf) Dronedarone PHA 07/21/25 Verified Hydrochloride (Multaq) 10:00 Date of Service: Jul 21, 2025 Billing Provider: KAROLINA CHARLES Common Visit Codes: [id number] INP/OBS CARE (HIGH) KAROLINA CHARLES Jul 21, 2025 09:26
[2025-07-21] MEDS: SODIUM CHLORIDE 0.9% 1,000 ML IV ONE (09:58)
[2025-07-21] MEDS: ASPirin-EC 81 mg tab PO SCH (09:58)
[2025-07-21] MEDS: METOPROLOL TARTRATE 50 MG TAB PO SCH (09:59)
[2025-07-21] MEDS: CHOLECALCIFEROL (VITD3) 1,000UNIT=25mCg TAB PO SCH (10:00)
[2025-07-21] MEDS: MAGNESIUM OXIDE 400 MG TAB PO SCH (10:00)
[2025-07-21] MEDS: DRONEDARONE HCL 400 MG TAB PO SCH (10:13)
[2025-07-21] MEDS ORDERED: APIX5TAB PO (11:07)
[2025-07-21] MEDS: InsuLIN REG 1unit/0.01ml Soln (100units/ml) SC SCH ×2 (11:30→22:00)
[2025-07-21] MEDS: ACCU-CHEK COMFORT CURVE STRIP VI SCH (11:32)
[2025-07-21 11:38] LABS: Potassium 3.3 mmol/L (3.5-5.1)
[2025-07-21 11:39] LABS: Magnesium 1.9 mg/dL (1.6-2.6)
[2025-07-21 12:00] VITALS: PULSE 71; RESP 13; O2SAT 97
--- NOTE | 2025-07-21 12:00 | DVHSR ---
APPROVED REPORT EXAM: Two-dimensional and M-mode echocardiogram with Doppler and color Doppler. Blood Pressure: 126/63 mmHg INDICATION Atrial fibrillation with RVR RISK FACTORS Height: 69, Weight: 315 DIMENSIONS LVDd 4.9 (3.8-5.7cm) LA (2D) 5.1 (1.9-4.0cm) Aortic Root (2.0-3.7cm) LVDs 3.5 (2.5-4.0cm) LA (MM) (1.9-4.0cm) Aortic Cusp Exc (1.5-2.0cm) EF (%) 54.0 (55-70%) Rt. Atrium 5.4 (1.9-4.0cm) Asc. Aorta cm Mitral Valve Mitral Mitral Stenosis E wave 0.86m/s MV Mean GR. mmHg A wave 0.70m/s MV Peak GR. mmHg E/A ratio 1.2 2D MVA cm2 DECEL Time 194ms PRESS 1/2 Time 54ms IVRT ms Dop MVA 4.07cm2 Aortic Valve Aortic Valve Aortic Stenosis V1 1.06m/s AO Mean GR. 5mmHg V2 1.39m/s AO Peak GR. 8mmHg LVOT Diameter 2.9 (1.8-2.4cm) Doppler ISSAC 5.03cm2 Pulmonic Valve V2 0.94m/s Other Information Technically limited study due to body habitus and patient position. Conclusion lvef 60% normal lvef normal rv function could be enlarged, limited views normal atria no severe valve abnormalities noted normal pericardium
--- NOTE | 2025-07-21 12:23 | DVHINCON2 ---
Date of service: Jul 21, 2025 History of Present Illness 64 y o M morbid obesity, afib ,admitted for afib rvr. pt converted to SR this AM tiffudn 3 Past Medical History reviewed Family History: Cardiovascular disease G8 FATHER FH: heart attack G8 MOTHER Allergies: Coded Allergies: NO KNOWN ALLERGIES (Verified , 05/29/23) Home Meds Reported Medications Apixaban Base (ELIQUIS) 5 Mg Tab, 5 MG PO BID, TAB 07/21/25 Dronedarone Hydrochloride (Multaq) 400 Mg Tab, 1 TAB PO BID 07/21/25 Duloxetine HCl (Duloxetine HCl) 60 Mg Cap, 1 CAP PO DAILY 07/21/25 [place] Fumarate (Tekturna) 150 Mg Tab, 1 TAB PO DAILY, #30 TAB 5 Refills 08/01/21 Hydralazine Hcl (Hydralazine Hcl) 50 Mg Tab, 50 MG PO TID for 30 Days, MG 08/01/21 Isosorbide Dinitrate (Isosorbide Dinitrate) 20 Mg Tab, 20 MG PO BID, MG 08/01/21 Cholecalciferol (VITAMIN D3) 2,000 Unit Tab, 1 TAB PO DAILY, #30 TAB 5 Refills 08/01/21 Clonidine Hydrochloride (Clonidine Hcl) 0.2 Mg/24 Hr Dis, 0.2 MG PO Q6HR for 30 Days, MG 08/01/21 Furosemide (Furosemide) 20 Mg Tab, 20 MG PO BIDD for 30 Days, MG 08/01/21 Magnesium Oxide (MAGNESIUM OXIDE) 400 Mg Tab, 400 MG OR DAILY, TAB 08/01/21 Losartan Potassium (Losartan Potassium) 100 Mg Tab, 100 MG PO DAILY for 30 Days, MG 08/01/21 Nifedipine (Nifedipine Er) 90 Mg Tab, 1 TAB PO DAILY, #30 TAB 5 Refills 08/01/21 Metoprolol Tartrate (Metoprolol Tartrate) 50 Mg Tab, 50 MG PO BID for 30 Days, MG 08/01/21 Potassium Chloride (POTASSIUM CHLORIDE CR) 10 Meq Tb, 1 TAB PO DAILY, #30 TAB 5 Refills 05/03/20 Atorvastatin Calcium (ATORVASTATIN CALCIUM) 10 Mg Tab, 1 TAB PO DAILY, #30 TAB 5 Refills 05/03/20 Aspirin (Aspir-Low) 81 Mg Tab, 81 MG PO DAILY for 30 Days, MG 05/03/20 Tamsulosin Hcl (Tamsulosin Hcl) 0.4 Mg Cap, 0.4 MG PO QPM for 30 Days, MG 05/02/20 Amlodipine Besylate (Amlodipine Besylate) 10 Mg Tab, 1 TAB PO DAILY, #30 TAB 5 Refills 05/02/20 Discontinued Reported Medications Tamsulosin Hcl (Tamsulosin Hcl) 0.4 Mg Cap, 0.4 MG PO QPM for 30 Days, MG 08/01/21 Metformin Hydrochloride (Metformin Hcl) 500 Mg Tab, 500 MG PO BID for 30 Days, MG 08/01/21 Atorvastatin Calcium (ATORVASTATIN CALCIUM) 10 Mg Tab, 1 TAB PO DAILY, #30 TAB 5 Refills 08/01/21 Aspirin (Aspir-81) 81 Mg Tab, 1 TAB PO DAILY, #30 TAB 5 Refills 08/01/21 Magnesium Oxide (MAGNESIUM OXIDE) 400 Mg Tab, 1 TAB PO DAILY, #30 TAB 5 Refills 05/02/20 Metformin Hydrochloride (Metformin Hcl) 500 Mg Tab, 500 MG PO BID for 30 Days, MG 05/02/20 Discontinued Scripts Levofloxacin (Levaquin) 500 Mg Tab, 500 MG PO DAILY, #7 MG Prov:MAK HOGAN MD 05/03/20 Furosemide (Furosemide) 20 Mg Tab, 20 MG PO DAILY for IF NEEDED FOR SWELLING for 30 Days, MG Prov:MAK HOGAN MD 05/03/20 Metoprolol Tartrate (Lopressor) 25 Mg Tb, 25 MG PO BID, #60 TAB Prov:MAK HOGAN MD 05/03/20 Current Medications Current Medications Medications (Trade) Dose Ordered Sig/Rebecca Route PRN Reason Start Time Stop Time Status Last Admin Acetaminophen/ Hydrocodone Bitart ([place] 5/325MG Tab) 1 tab Q4HP PRN PO MODERATE PAIN (4-6 PAIN SCALE) 07/21/25 09:00 Ondansetron HCl (Zofran) 4 mg Q4HP PRN IV NAUSEA / VOMITING 07/21/25 09:00 Docusate Sodium (Colace Capsule) 100 mg BIDPRN PRN PO FOR CONSTIPATION 07/21/25 09:00 Acetaminophen (Tylenol Tablet) 650 mg Q6HP PRN PO PAIN SCALE 1-3 OR TEMP>100.4 07/21/25 09:00 Nitroglycerin (Ntrostat Sublingual) 0.4 mg Q5MINP PRN SL FOR CHEST PAIN 07/21/25 09:00 Morphine Sulfate 2 mg Q30M PRN IV FOR CHEST PAIN 07/21/25 09:00 Aspirin (Ecotrin Enteric Coated Tablet) 81 mg DAILY PO 07/21/25 10:00 07/21/25 09:58 Metoprolol Tartrate (Lopressor Tablet) 50 mg BID PO 07/21/25 10:00 07/21/25 09:59 Tamsulosin HCl (Flomax) 0.4 mg QPM PO 07/21/25 18:00 Atorvastatin Calcium (Lipitor) 10 mg HS PO 07/21/25 22:00 Cholecalciferol (Vitamin D3 Tablet) 2,000 unit DAILY PO 07/21/25 10:00 07/21/25 10:00 Magnesium Oxide (Mag-Ox Tablet) 400 mg DAILY PO 07/21/25 10:00 07/21/25 10:00 Dronedarone (MulTAQ) 400 mg BID PO 07/21/25 10:00 07/21/25 10:13 Duloxetine HCl (Cymbalta Capsule) 60 mg DAILY PO 07/21/25 10:00 07/21/25 10:00 Diagnostic Test (Pha) (Accu-Chek Comfort Curve T) 1 strip ACHS 07/21/25 11:30 07/21/25 11:32 Insulin Human Regular (InsuLIN R) HS SC 07/21/25 22:00 Insulin Human Regular (InsuLIN R) AC SC 07/21/25 11:30 Dextrose 50 ml UD PRN IV Blood Sugar LESS THAN 60 07/21/25 09:15 Ceftriaxone Sodium 50 ml @ 100 mls/hr DAILY@ IV 07/22/25 09:00 Apixaban (Eliquis) 5 mg BID PO 07/21/25 22:00 Review of Systems 10 pt ros otherwise negative +venous stasis ulcer Vital Signs Vital Signs Date Time Temp Pulse Resp B/P (MAP) Pulse Ox O2 Delivery O2 Flow Rate FiO2 07/21/25 12:06 70 120/54 07/21/25 08:00 97.5 15 99 97.5 07/21/25 07:45 Room Air* 0 21 Physical Exam nad s1 s2 rrr ctab softn t/nd +3 leg edema BL bandaged up with ulcers Labs/Diagnostic Data Labs Test 07/21/25 11:32 07/21/25 10:53 07/21/25 04:34 07/21/25 02:27 Range/Units POC Glucose 107 H 70-106 mg/dl Potassium Level 3.3 L 3.5-5.1 mmol/L Magnesium Level 1.9 1.6-2.6 mg/dL Urine Color Colorless Yellow Urine Clarity Clear Clear Urine pH 6.0 5.0-9.0 Urine Specific [place] 1.009 1.001-1.035 Urine Protein Negative Negative Urine Ketones Negative Negative Urine Blood Negative Negative /uL Urine Nitrite Negative Negative Urine Bilirubin Negative Negative Urine Urobilinogen Normal Negative mg/dL Urine Leukocyte Esterase Negative Negative /uL Urine RBC <1 0 - 3 /hpf Urine Microscopic WBC < 1 0-3 /HPF Urine Squamous Epithelial Cells None seen <5 /hpf Urine Bacteria None seen None Seen /hpf Urine Glucose Normal Normal mg/dL White Blood Count 14.0 H 4.4-10.8 10^3/uL Red Blood Count 4.53 4.5-5.90 10^6/uL Hemoglobin 12.1 L 13.5-17.5 g/dL Hematocrit 36.5 L 41.0-53.0 % Mean Corpuscular Volume 80.6 80.0-100.0 fL Mean Corpuscular Hemoglobin 26.7 L 28.0-32.0 pg Mean Corpuscular Hemoglobin Concent 33.1 32.0-36.0 g/dL Red Cell Distribution Width 17.1 H 11.8-14.3 % Platelet Count 337 140-450 10^3/uL Mean Platelet Volume 6.4 L 6.9-10.8 fL Neutrophils (%) (Auto) 89.6 H 37.0-80.0 % Lymphocytes (%) (Auto) 5.1 L 10.0-50.0 % Monocytes (%) (Auto) 4.1 0.0-12.0 % Eosinophils (%) (Auto) 0.8 0.0-7.0 % Basophils (%) (Auto) 0.4 0.0-2.0 % Neutrophils # (Auto) 12.5 H 1.6-8.6 10 ^3/uL Lymphocytes # (Auto) 0.7 0.4-5.4 10 ^3/uL Monocytes # (Auto) 0.6 0-1.3 10 ^3/uL Eosinophils # (Auto) 0.1 0-0.8 10 ^3/uL Basophils # (Auto) 0.1 0-0.2 10 ^3/uL Nucleated Red Blood Cells 0.0 % Prothrombin Time 10.9 9.3-11.8 sec Prothrombin Time INR 1.03 0.9-1.15 Sodium Level 141 136-145 mmol/L Chloride Level 100 98-107 mmol/L Carbon Dioxide Level 29 20-31 mmol/L Anion Gap 12 5-15 Blood Urea Nitrogen 22 9-23 mg/dL Creatinine 1.69 H 0.700-1.30 mg/dL Glomerular Filtration Rate Calc 45 >90 mL/min BUN/Creatinine Ratio 13.0 10.0-20.0 Serum Glucose 201 H 74-106 mg/dL Calcium Level 9.4 8.7-10.4 mg/dL Troponin I High Sensitivity 8 </=54 ng/L B-Type Natriuretic Peptide 24.13 0-100 pg/mL Assessment afib rvr obesity diastolic HF ckd htn HL venous ulcers Plan/Recommendation resume multaq can uptitrate BB to 75 mg bid cont doac recommend outpt venogram for 2 year long ulcer, once stable echo shows preserved lvef Plan discussed with: Patient EDY LOO MD Jul 21, 2025 12:23
[2025-07-21] MEDS ORDERED: CEFD300C2 PO (12:36)
[2025-07-21] MEDS: TAMSULOSIN HYDROCHLORIDE 0.4 MG CAP PO SCH (17:32)
[2025-07-21] MEDS ORDERED: METO2.5T PO (18:09)
[2025-07-21] MEDS: ATORVASTATIN 20 MG TAB PO SCH (22:30)
[2025-07-21] MEDS: APIXABAN 5 MG TAB PO SCH (22:32)
[2025-07-21 23:40] VITALS: BP 126/73; PULSE 70; RESP 20; TEMP 97.7; O2SAT 98
[2025-07-22] VITALS (10 sets, daily range): BP systolic 116–134; BP diastolic 67–79; PULSE 55–71; RESP 14–19; TEMP 97.6–98.2; O2SAT 94–99
[2025-07-22 01:35] LABS: Hematocrit 32.7 % (41.0-53.0); Hemoglobin 11.2 g/dL (13.5-17.5); Mean Corpuscular Hemoglobin 27.6 pg (28.0-32.0); Mean Corpuscular Volume 81.0 fL (80.0-100.0); Nucleated Red Blood Cells % 0.0 %
[2025-07-22 01:53] LABS: Alanine Aminotransferase 15 U/L (7-40); Albumin 3.5 g/dL (3.2-4.8); Alkaline Phosphatase 89 U/L (46-116); Anion Gap 10 (5-15); BUN/Creatinine Ratio 17.1 (10.0-20.0); Bilirubin, Total 0.4 mg/dL (0.2-1.0); Blood Urea Nitrogen 20 mg/dL (9-23); Calcium 8.8 mg/dL (8.7-10.4); Carbon Dioxide 30 mmol/L (20-31); Chloride 101 mmol/L (98-107); Sodium 141 mmol/L (136-145); Total Protein 6.4 g/dL (5.7-8.2)
[2025-07-22 01:59] LABS: Glucose 107 mg/dL (74-106); Potassium 3.5 mmol/L (3.5-5.1)
[2025-07-22 10:13] LABS: Hepatitis B Surface Antigen Negative (Negative)
[2025-07-22 10:32] LABS: Hepatitis C Antibody Negative (Negative)
--- NOTE | 2025-07-22 16:21 | DVHPN2 ---
Subjective Patient denies any symptoms this time Reviewed: Care Plan, H&P, Labs Changes from previous H/P or p: No Changes General: Per HPI Eyes: No Pain, No Vision change, No Conjunctivae inflammation, No Eyelid inflammation, No Other, No Redness ENT: No Ear pain, No Ear discharge, No Nose pain, No Nose discharge, No Nose congestion, No Mouth pain, No Mouth swelling, No Throat pain, No Throat swelling, No Other Cardiovascular: No Chest Pain, No Palpitations, No Orthopnea, No Paroxysmal Noc. Dyspnea, No Edema, No Lt Headedness, No Other Respiratory: No Cough, No Dry, No Shortness of breath, No SOB with excertion, No Wheezing, No Hemoptysis, No Pleuritic Pain, No Sputum, No Other Gastrointestinal: No Nausea, No Vomiting, No Abdominal Pain, No Diarrhea, No Constipation, No Melena, No Hematochezia, No Other Genitourinary: No Dysuria, No Frequency, No Incontinence, No Hematuria, No Retention, No Other Musculoskeletal: No other, No neck pain, No shoulder pain, No arm pain, No back pain, No hand pain, No leg pain, No foot pain Skin: No Rash, No Lesions, No Jaundice, No Bruising, No Other Objective Vitals Vital Signs Date Time Temp Pulse Resp B/P (MAP) Pulse Ox O2 Delivery O2 Flow Rate FiO2 07/22/25 13:00 97.8 55 18 134/79 (97) 97 97.8 07/22/25 00:11 Nasal Cannula* 2 28 Intake/Output Intake and Output 07/22/25 07:00 Intake Total 200 ml Output Total 1725 ml Balance -1525 ml Intake Oral 200 ml Output Urine Total 1725 ml General Appearance: Alert, Oriented X3, Cooperative, No acute distress HEENT: Atraumatic, PERRLA Cardiovascular: Normal S1, Normal S2 Abdomen: Normal bowel sounds, Soft, No tenderness, No hepatospenomegaly Musculoskeletal: Normal sensory function, Normal motor function Neuro: Normal gait, Normal speech Skin: Dry, Intact Psych/Mental Status: Mental status NL, Mood NL Medications Current Medications Medications Dose Ordered Sig/Rebecca Route Start Time Stop Time Status Last Admin Dose Admin Acetaminophen/ Hydrocodone Bitart 1 tab Q4HP PRN PO 07/21/25 09:00 Ondansetron HCl 4 mg Q4HP PRN IV 07/21/25 09:00 Docusate Sodium 100 mg BIDPRN PRN PO 07/21/25 09:00 Acetaminophen 650 mg Q6HP PRN PO 07/21/25 09:00 Nitroglycerin 0.4 mg Q5MINP PRN SL 07/21/25 09:00 Morphine Sulfate 2 mg Q30M PRN IV 07/21/25 09:00 Aspirin 81 mg DAILY PO 07/21/25 10:00 07/22/25 09:10 81 MG Metoprolol Tartrate 50 mg BID PO 07/21/25 10:00 07/22/25 09:09 50 MG Tamsulosin HCl 0.4 mg QPM PO 07/21/25 18:00 07/21/25 17:32 0.4 MG Atorvastatin Calcium 10 mg HS PO 07/21/25 22:00 07/21/25 22:30 10 MG Cholecalciferol 2,000 unit DAILY PO 07/21/25 10:00 07/22/25 09:09 2,000 UNIT Magnesium Oxide 400 mg DAILY PO 07/21/25 10:00 07/22/25 09:09 400 MG Dronedarone 400 mg BID PO 07/21/25 10:00 07/22/25 09:08 400 MG Duloxetine HCl 60 mg DAILY PO 07/21/25 10:00 07/22/25 09:08 60 MG Diagnostic Test (Pha) 1 strip ACHS 07/21/25 11:30 07/22/25 10:54 1 STRIP Insulin Human Regular HS SC 07/21/25 22:00 Insulin Human Regular AC SC 07/21/25 11:30 Dextrose 50 ml UD PRN IV 07/21/25 09:15 Ceftriaxone Sodium 50 ml @ 100 mls/hr DAILY@09 IV 07/22/25 09:00 07/22/25 09:10 100 MLS/HR Apixaban 5 mg BID PO 07/21/25 22:00 07/22/25 09:09 5 MG Patient Own Medication 1 cap BID PO 07/21/25 22:00 Hold Laboratory Results Laboratory Tests 07/22/25 01:25 Chemistry Test 07/22/25 01:25 Albumin 3.5 g/dL (3.2-4.8) Calcium Level 8.8 mg/dL (8.7-10.4) Total Protein 6.4 g/dL (5.7-8.2) LFT Test 07/22/25 01:25 Alanine Aminotransferase (ALT) 15 U/L (7-40) Alkaline Phosphatase 89 U/L (46-116) Aspartate Amino Transferase (AST) 15 U/L (13-40) Total Bilirubin 0.4 mg/dL (0.2-1.0) Urinalysis Test 07/21/25 04:34 Urine Color Colorless (Yellow) Urine Clarity Clear (Clear) Urine pH 6.0 (5.0-9.0) Urine Specific [place] 1.009 (1.001-1.035) Urine Protein Negative (Negative) Urine Ketones Negative (Negative) Urine Blood Negative /uL (Negative) Urine Nitrite Negative (Negative) Urine Bilirubin Negative (Negative) Urine Urobilinogen Normal mg/dL (Negative) Urine Leukocyte Esterase Negative /uL (Negative) Urine RBC <1 /hpf (0 - 3) Urine Microscopic WBC < 1 /HPF (0-3) Urine Squamous Epithelial Cells None seen /hpf (<5) Urine Bacteria None seen /hpf (None Seen) Urine Glucose Normal mg/dL (Normal) Labs and/or images reviewed: Labs reviewed by me, Image(s) reviewed by me Assessment/Plan Assessment/Plan Impression: -AFib with RVR -leukocytosis, rule out sepsis -left lower extremity cellulitis -history basal and squamous cell carcinoma with reconstructive surgery to left cheek, partial removal on right ear, as well as surgical excision of cancer to both lower extremity -obese Plan: -continue IV Rocephin -cardiology consultation: Recommendations reviewed. Continue Multaq and metoprolol given rate and rhythm has been controlled -continue anticoagulation with Eliquis -repeat labs in a.m. -reassess for discharge in a.m. Total time spent with patient discussing and formulating plan of care: 35 minutes. This medical document was created using an electronic medical record system with [id number] dictation system. Although this document has been carefully reviewed, there may still be some phonetic and typographical errors. These areas are purely typographical due to imperfections of the software programs, and do not reflect any compromise in the patient's medical care. Plan discussed with: Patient, Other (RN) Date of Service: Jul 22, 2025 Billing Provider: SHEREEN GONZALEZ NP Common Visit Codes: [id number] INP/OBS CARE(HIGH) SHEREEN GONZALEZ MEDIA ASSISTANT Jul 22, 2025 16:21
[2025-07-23] VITALS (7 sets, daily range): BP systolic 121–140; BP diastolic 71–95; PULSE 56–69; RESP 16–18; TEMP 97.8–98.9; O2SAT 95–97
[2025-07-23 06:33] LABS: Hematocrit 34.9 % (41.0-53.0); Hemoglobin 11.7 g/dL (13.5-17.5); Mean Corpuscular Hemoglobin 27.0 pg (28.0-32.0); Mean Corpuscular Volume 80.6 fL (80.0-100.0); Nucleated Red Blood Cells % 0.0 %
[2025-07-23 06:51] LABS: Anion Gap 12 (5-15); Calcium 9.5 mg/dL (8.7-10.4); Carbon Dioxide 30 mmol/L (20-31); Potassium 3.5 mmol/L (3.5-5.1); Sodium 139 mmol/L (136-145)
[2025-07-23 06:57] LABS: BUN/Creatinine Ratio 12.7 (10.0-20.0); Blood Urea Nitrogen 15 mg/dL (9-23); Chloride 97 mmol/L (98-107); Glucose 102 mg/dL (74-106)
[2025-07-23] MEDS ORDERED: CLIN1CAP70 PO (14:44)
[2025-07-23] MEDS ORDERED: SACC250C PO (14:45)
--- NOTE | 2025-07-23 15:55 | DVHDS2 ---
Discharge Summary Date of Admission Jul 21, 2025 at 08:46 Date of Discharge: Jul 23, 2025 Admitting Diagnosis AFib with RVR Labs/Diagnostic Data: Laboratory Results Test 07/23/25 11:16 07/23/25 05:31 07/22/25 01:25 07/21/25 10:53 POC Glucose 102 mg/dl (70-106) White Blood Count 9.9 10^3/uL (4.4-10.8) Red Blood Count 4.33 10^6/uL (4.5-5.90) Hemoglobin 11.7 g/dL (13.5-17.5) Hematocrit 34.9 % (41.0-53.0) Mean Corpuscular Volume 80.6 fL (80.0-100.0) Mean Corpuscular Hemoglobin 27.0 pg (28.0-32.0) Mean Corpuscular Hemoglobin Concent 33.5 g/dL (32.0-36.0) Red Cell Distribution Width 16.9 % (11.8-14.3) Platelet Count 308 10^3/uL (140-450) Mean Platelet Volume 6.6 fL (6.9-10.8) Neutrophils (%) (Auto) 77.5 % (37.0-80.0) Lymphocytes (%) (Auto) 11.4 % (10.0-50.0) Monocytes (%) (Auto) 7.3 % (0.0-12.0) Eosinophils (%) (Auto) 3.0 % (0.0-7.0) Basophils (%) (Auto) 0.8 % (0.0-2.0) Neutrophils # (Auto) 7.7 10 ^3/uL (1.6-8.6) Lymphocytes # (Auto) 1.1 10 ^3/uL (0.4-5.4) Monocytes # (Auto) 0.7 10 ^3/uL (0-1.3) Eosinophils # (Auto) 0.3 10 ^3/uL (0-0.8) Basophils # (Auto) 0.1 10 ^3/uL (0-0.2) Nucleated Red Blood Cells 0.0 % Sodium Level 139 mmol/L (136-145) Potassium Level 3.5 mmol/L (3.5-5.1) Chloride Level 97 mmol/L (98-107) Carbon Dioxide Level 30 mmol/L (20-31) Anion Gap 12 (5-15) Blood Urea Nitrogen 15 mg/dL (9-23) Creatinine 1.18 mg/dL (0.700-1.30) Glomerular Filtration Rate Calc 69 mL/min (>90) BUN/Creatinine Ratio 12.7 (10.0-20.0) Serum Glucose 102 mg/dL (74-106) Calcium Level 9.5 mg/dL (8.7-10.4) Total Bilirubin 0.4 mg/dL (0.2-1.0) Aspartate Amino Transferase (AST) 15 U/L (13-40) Alanine Aminotransferase (ALT) 15 U/L (7-40) Alkaline Phosphatase 89 U/L (46-116) Total Protein 6.4 g/dL (5.7-8.2) Albumin 3.5 g/dL (3.2-4.8) Hepatitis B Surface Antigen Negative (Negative) Hepatitis C Antibody Negative (Negative) Magnesium Level 1.9 mg/dL (1.6-2.6) Test 07/21/25 04:34 07/21/25 02:27 Urine Color Colorless (Yellow) Urine Clarity Clear (Clear) Urine pH 6.0 (5.0-9.0) Urine Specific [place] 1.009 (1.001-1.035) Urine Protein Negative (Negative) Urine Ketones Negative (Negative) Urine Blood Negative /uL (Negative) Urine Nitrite Negative (Negative) Urine Bilirubin Negative (Negative) Urine Urobilinogen Normal mg/dL (Negative) Urine Leukocyte Esterase Negative /uL (Negative) Urine RBC <1 /hpf (0 - 3) Urine Microscopic WBC < 1 /HPF (0-3) Urine Squamous Epithelial Cells None seen /hpf (<5) Urine Bacteria None seen /hpf (None Seen) Urine Glucose Normal mg/dL (Normal) Prothrombin Time 10.9 sec (9.3-11.8) Prothrombin Time INR 1.03 (0.9-1.15) Troponin I High Sensitivity 8 ng/L (</=54) B-Type Natriuretic Peptide 24.13 pg/mL (0-100) Other Laboratory Tests 07/23/25 05:31 Brief Hx & Hospital Course: History of Present Illness Axel Blandon is a 64-year-old male with past medial history of hypertension, hyperlipidemia, diabetes, BPH, skin cancer, and atrial fibrillation, who came to the hospital for palpitations. Patient states he can feel when his atrial fibrillation is acting up and he monitors it on his watch. He states last night about 2300 he felt the palpitations and noticed that his heart rate was elevated he took his nightly dose of Multaq and metoprolol. He waited about 2 hours, was only having minimal improvement so he took another metoprolol. He waited another 45 minutes then called EMS cause his heart rate was still up in the 130's. Patient states he was taking 100mg of metoprolol BID, but was decreased to 50 mg BID about 3 months ago due to him losing over 100 pounds and his blood pressure decreasing. He states he felt like this happened about 2 weeks ago. He took an extra dose of his metoprolol at that time and his symptoms improved. Patient does have bilateral lower extremities cellulites that he is currently being treated for. He has home health that comes 5 nights a weeks, he is on antibiotics, and lives with his sister who is his caregiver. Patient is also currently undergoing skin cancer treatment. He has been undergoing radiation, chemo therapy, and surgeries. Course of hospitalization: Patient was initially placed on amiodarone drip which resolved AFib. Patient was then transitioned to metoprolol tartrate as well as Multaq. Patient's heart rate remained controlled while in the hospital. He was noted to have elevated white blood cell count which also improved with IV Rocephin. Assessed with the patient, it appears that he has drainage from cellulitis to a previous wound to his left lower extremity. Patient will be discharged home today given his improvement with clinical status and maintenance of sinus rhythm with antiarrhythmics. White blood cell count is normal. Patient is afebrile. He will be continued on antibiotic therapy in the form of clindamycin 300 mg p.o. t.i.d. for five days, as well as being provided Florastor given his multiple courses of antibiotics noted as an outpatient. He is to continue his prescribed dose of metoprolol tartrate and Multaq at home and follow up with his PCP in 1-2 weeks. Patient was agreeable with discharge plan. All questions answered. Physical examination General: Alert and Oriented x3. No acute distress. Well-nourished. Eyes: EOMI. Anicteric. HENT: Moist mucous membranes. Lungs: Clear to auscultation bilaterally. No accessory muscle use. Cardiovascular: Regular rate and rhythm. No murmur. No JVD. Abdomen: Soft, non-tender and non-distended. No palpable masses. Extremities: No edema. Non-tender. Skin: No rashes or lesions. Warm. Neurologic: No focal neurological deficits. CN II-XII grossly intact, but not individually tested. Psychiatric: Cooperative. Appropriate mood and affect. Total time spent with patient discussing and formulating plan of care: 35 minutes. This medical document was created using an electronic medical record system with [employer] dictation system. Although this document has been carefully reviewed, there may still be some phonetic and typographical errors. These areas are purely typographical due to imperfections of the software programs, and do not reflect any compromise in the patient's medical care. Consults/Reason for consult Cardiology: AFib with RVR Condition at Discharge: Fair Final Diagnosis/Problems List -AFib with RVR -leukocytosis, rule out sepsis -left lower extremity cellulitis -history basal and squamous cell carcinoma with reconstructive surgery to left cheek, partial removal on right ear, as well as surgical excision of cancer to both lower extremity -obese Discharge Disposition: Home with Health Services Discharge Instruct/Medications Diet: Cardiac 2g Na,low cholest Activity: No Restrictions, As Tolerated Follow Up/Referral: DC clinic in 1 week Medications: Clindamycin 300mg po tid x 5 days Scheduled [place] Fumarate ([place]), 1 TAB PO DAILY, (Reported) Amlodipine Besylate (Amlodipine Besylate), 1 TAB PO DAILY, (Reported) Apixaban Base (Eliquis), 5 MG PO BID, (Reported) Aspirin (Aspir-Low), 81 MG PO DAILY, (Reported) Atorvastatin Calcium (Atorvastatin Calcium), 1 TAB PO DAILY, (Reported) Cefdinir (Cefdinir), 1 CAP PO BID, (Reported) Cholecalciferol (Vitamin D3), 1 TAB PO DAILY, (Reported) Clindamycin Hcl (Clindamycin Hcl), 1 CAP PO TID Clonidine Hydrochloride (Clonidine Hcl), 0.2 MG PO Q6HR, (Reported) Dronedarone Hydrochloride (Multaq), 1 TAB PO BID, (Reported) Duloxetine HCl (Duloxetine HCl), 1 CAP PO DAILY, (Reported) Furosemide (Furosemide), 20 MG PO BIDD, (Reported) Hydralazine Hcl (Hydralazine Hcl), 50 MG PO TID, (Reported) Isosorbide Dinitrate (Isosorbide Dinitrate), 30 MG PO DAILY, (Reported) Losartan Potassium (Losartan Potassium), 100 MG PO DAILY, (Reported) Magnesium Oxide (Magnesium Oxide), 400 MG OR DAILY, (Reported) Metolazone (Metolazone), 2.5 MG PO DAILY, (Reported) Metoprolol Tartrate (Metoprolol Tartrate), 50 MG PO BID, (Reported) Nifedipine (Nifedipine Er), 1 TAB PO DAILY, (Reported) Potassium Chloride (Potassium Chloride Cr), 1 TAB PO DAILY, (Reported) Tamsulosin Hcl (Tamsulosin Hcl), 0.4 MG PO QPM, (Reported) Yeast (S. Boulardii)(S. Cerevi (Florastor), 250 MG PO DAILY Discontinued Medications Aspirin (Aspir-81), 1 TAB PO DAILY, (Reported) Atorvastatin Calcium (Atorvastatin Calcium), 1 TAB PO DAILY, (Reported) Furosemide (Furosemide), 20 MG PO DAILY Levofloxacin (Levaquin), 500 MG PO DAILY Magnesium Oxide (Magnesium Oxide), 1 TAB PO DAILY, (Reported) Metformin Hydrochloride (Metformin Hcl), 500 MG PO BID, (Reported) Metformin Hydrochloride (Metformin Hcl), 500 MG PO BID, (Reported) Metoprolol Tartrate (Lopressor), 25 MG PO BID Tamsulosin Hcl (Tamsulosin Hcl), 0.4 MG PO QPM, (Reported) 36 Discharge Statement: "Patient was advised to return to the ER or call 911 if any headaches, dizziness, shortness of breath, chest pain, abdominal pain, bleeding, fevers, or worsening of medical condition. Patient was counseled about treatment plan, medications, possible side effects, patientverbalized understanding. All questions were answered to the best of my ability. This discharge took greater then 30 minutes in planning, reviewing documentation, counseling the patient, and discussing with other team members." ASSESSMENT ASSESSMENT Assessment Michelle Holley with RVR Date of Service: Jul 23, 2025 Billing Provider: SHEREEN GONZALEZ NP Common Visit Codes: 58840-[id number]/OBS DISCH DAY >30min SHEREEN GONZALEZ NP Jul 23, 2025 15:55
== END 2025-07-23 17:57 | disposition home health service (06) | DRG 872 ==
LOC: ER 02:10 → OVERFLOW 08:46 → TELE-WESTW 23:42
PROVIDERS: ADMIT Nurse Practitioner Acute Care; ATTEND Nurse Practitioner Acute Care
DX: A41.9 Sepsis, unspecified organism (principal); I13.0 Hypertensive heart and chronic kidney disease with heart failure and stage 1 through stage 4 chronic kidney disease, or unspecified chronic kidney disease; I50.32 Chronic diastolic (congestive) heart failure; L03.116 Cellulitis of left lower limb; Z79.01 Long term (current) use of anticoagulants; Z68.42 Body mass index [BMI] 45.0-49.9, adult; N18.31 Chronic kidney disease, stage 3a; E11.22 Type 2 diabetes mellitus with diabetic chronic kidney disease; E66.01 Morbid (severe) obesity due to excess calories; E78.5 Hyperlipidemia, unspecified; I48.91 Unspecified atrial fibrillation; K21.9 Gastro-esophageal reflux disease without esophagitis; E87.6 Hypokalemia; N40.0 Benign prostatic hyperplasia without lower urinary tract symptoms; Z79.84 Long term (current) use of oral hypoglycemic drugs; Z79.899 Other long term (current) drug therapy; Z85.828 Personal history of other malignant neoplasm of skin; Z82.49 Family history of ischemic heart disease and other diseases of the circulatory system
CPT/HCPCS: 36415; 71045; 80048; 80053; 81001; 82962; 83735; 83880; 84132; 84484; 85025; 85610; 86803; 87340; 93005; 93306; 96365; 96367; 96375; 99291; G0378; J1815; J3480